=== PATIENT | female | born 1945 | race Caucasian/White ===

== ENCOUNTER 2019-10-28 01:14 | Outpatient (CLI) | payer MEDICARE, SELFPAY ==
[2019-10-28 19:35] LABS: SARS-CoV-2 RNA PCR Negative
== END 2019-10-28 01:15 | disposition home or self-care (01) ==
LOC: ANHCOVIDDT 01:14
PROVIDERS: PCP Internal Medicine; Visit Provider Internal Medicine Gastroenterology
DX: Z01.812 Encounter for preprocedural laboratory examination (principal); Z11.59 Encounter for screening for other viral diseases
CPT/HCPCS: 87635; C9803; U0003

== ENCOUNTER 2019-10-30 01:30 | Day surgery (SDC) | payer MEDICARE, SELFPAY ==
[2019-10-24 14:40] VITALS: BMI 32.0
[2019-10-30 07:40] VITALS: BP 169/74; PULSE 65; RESP 16; TEMP 36.5; O2SAT 100; BMI 31.1
[2019-10-30] MEDS: LACTATED RINGERS 1,000 ML 150 ML IV CONT (07:57)
--- NOTE | 2019-10-30 08:06 | PM.IMHP ---
H&P: HPI History of Present Illness Date/Time: 10/30/19 08:06 Chief complaint: Family Hx of CA Narrative: Reason for visit screening colonoscopy. This very pleasant lady seen at the request of the primary physician. Impression: Family history of colon cancer. The patient is here for screening colonoscopy. The patient complains of chronic constipation. This is most likely due to chronic idiopathic constipation. Recommendation: Colonoscopy. history: This very pleasant lady is a family history colorectal cancer. Injury systems remarkable for chronic constipation. She takes fiber and probiotic. She continues to have difficulty with defecation at times. He medication, melena acholic stools are denied. Physical examination: General: very pleasant patient in no acute distress. HEENT: Head was normocephalic sclerae is clear mouth without masses neck was supple. Heart: Rate rhythm regular without S3 or S4. Lungs: CTA. Abdomen: Soft with no guarding or rigidity. Bowel sounds were active. Neurologic: Cranial nerves 2 through 12 intact. No focal defects. No clonus. Musculoskeletal system: Revealed no joint tenderness or swelling no muscle atrophy. Extremities: Reveal no significant edema. Skin: Warm and dry with normal turgor. Mental status: intact. Patient is alert and oriented. Review of Systems Review of Systems: All systems reviewed & are unremarkable except as noted in HPI and below PMFSH Social History Social History (Reviewed 09/16/19 @ 08:15 by Bridget Gil, [facility] [address]) Smoking status: Never smoker Second hand tobacco smoke exposure: No Alcohol intake: current Meds Home Medications and Allergies Home Medications Medication Instructions Recorded Confirmed Type Saccharomyces boulardii 250 mg 250 mg PO DAILY 01/30/19 10/24/19 History capsule aspirin 81 mg chewable tablet 81 mg PO DAILY 01/30/19 10/24/19 History cetirizine 10 mg tablet 5 mg PO DAILY PRN 01/30/19 10/24/19 History cholecalciferol (vitamin D3) 25 1,000 unit PO DAILY 01/30/19 10/24/19 History mcg (1,000 unit) capsule multivitamin 1 tablet PO DAILY 01/30/19 10/24/19 History omega 2-zdg-vpf-fish oil 100 1 cap PO DAILY 01/30/19 10/24/19 History mg-160 mg-1,000 mg capsule vit C 250 mg-E 200 unit-zinc 40 1 tablet PO DAILY 01/30/19 10/24/19 History mg-copper 1 xf-tqhqaq-ynoscy capsule losartan 50 mg tablet 50 mg PO DAILY #90 tablet 09/16/19 10/24/19 Rx simvastatin 40 mg tablet 40 mg PO DAILY #90 tablet 09/16/19 10/24/19 Rx tramadol 50 mg tablet 50 mg PO .COMPLEX PRN #90 tablet 10/14/19 10/24/19 Rx ascorbic acid (vitamin C) [Vitamin 500 mg PO DAILY 10/24/19 10/24/19 History C] psyllium husk [Metamucil] 1 tbsp PO DAILY 10/24/19 10/24/19 History Allergies Allergy/AdvReac Type Severity Reaction Status Date / Time niacin Allergy Intermediate Itching Verified 10/30/19 07:34 clindamycin Allergy Unknown Itching Verified 10/30/19 07:34 Penicillins Allergy Unknown Nausea and Verified 10/30/19 07:34 Vomiting Vital Signs Vital Signs - 24 hr 10/30/19 07:40 Temperature 36.5 C Pulse Rate 65 Respiratory Rate 16 Blood Pressure 169/74 H Pulse Oximetry 100
--- NOTE | 2019-10-30 08:23 | WPDANESEPPF ---
Anes - Initial Pre Proc Eval Procedure: Operation Date: 10/30/19 08:30 Proposed Procedures p Screening Colonoscopy - Jose Dorado DO Date/Time: 10/30/19 08:23 Surgeon: Jose Dorado DO Pre Op Diagnosis: Family Hx of CA Patient Data Age: 74 Gender: F Height: 5 ft 6 in Weight: 87.7 kg Last Vital Signs Temp 97.7 F 10/30/19 07:40 Pulse 65 10/30/19 07:40 Resp 16 10/30/19 07:40 BP 169/74 H 10/30/19 07:40 Pulse Ox 100 10/30/19 07:40 Allergies Allergy/AdvReac Type Severity Reaction Status Date / Time niacin Allergy Intermediate Itching Verified 10/30/19 07:34 clindamycin Allergy Unknown Itching Verified 10/30/19 07:34 Penicillins Allergy Unknown Nausea and Verified 10/30/19 07:34 Vomiting Home Medications Medication Instructions Recorded Confirmed Type Saccharomyces boulardii 250 mg 250 mg PO DAILY 01/30/19 10/24/19 History capsule aspirin 81 mg chewable tablet 81 mg PO DAILY 01/30/19 10/24/19 History cetirizine 10 mg tablet 5 mg PO DAILY PRN 01/30/19 10/24/19 History cholecalciferol (vitamin D3) 25 1,000 unit PO DAILY 01/30/19 10/24/19 History mcg (1,000 unit) capsule multivitamin 1 tablet PO DAILY 01/30/19 10/24/19 History omega 7-gxz-wbu-fish oil 100 1 cap PO DAILY 01/30/19 10/24/19 History mg-160 mg-1,000 mg capsule vit C 250 mg-E 200 unit-zinc 40 1 tablet PO DAILY 01/30/19 10/24/19 History mg-copper 1 io-icvvbw-sejuxv capsule losartan 50 mg tablet 50 mg PO DAILY #90 tablet 09/16/19 10/24/19 Rx simvastatin 40 mg tablet 40 mg PO DAILY #90 tablet 09/16/19 10/24/19 Rx tramadol 50 mg tablet 50 mg PO .COMPLEX PRN #90 tablet 10/14/19 10/24/19 Rx ascorbic acid (vitamin C) [Vitamin 500 mg PO DAILY 10/24/19 10/24/19 History C] psyllium husk [Metamucil] 1 tbsp PO DAILY 10/24/19 10/24/19 History Patient hx anesthesia problems: none Family hx anesthesia problems: none PMFSH Social History Social History Smoking status: Never smoker Second hand tobacco smoke exposure: No Alcohol intake: current Anes - Eval Final PreProcedure Day of Procedure 10/30/19 08:23 Patient weight: obese Heart: regular rate and rhythm Lungs: clear to auscultation Airway: Mallampati scale class II Neurological: alert and oriented Last oral intake: >/= 8 hours ASA classification: III Emergent: no Anesthetic plan: proceed Anesthesia type and monitoring: general GIVS and standard monitoring Informed Consent: The patient's anesthetic plan and its attendant risks and benefits were discussed with the patient/family/POA. Questions were solicited and answers provided to the satisfaction of the patient/family/POA.
[2019-10-30 09:10] VITALS: BP 97/55; PULSE 65; RESP 19; O2SAT 95
[2019-10-30 09:20] VITALS: BP 109/49; PULSE 62; RESP 20; O2SAT 94
[2019-10-30 09:30] VITALS: BP 131/72; PULSE 63; RESP 17; O2SAT 96
== END 2019-10-30 09:50 | disposition home or self-care (01) ==
PROVIDERS: PCP Internal Medicine; Visit Provider Internal Medicine Gastroenterology
PROC: 0DJD8ZZ Inspection of Lower Intestinal Tract, Via Natural or Artificial Opening Endoscopic (ICD-10-PCS; CPT 45378; principal; 2019-10-30 08:30)
DX: Z12.11 Encounter for screening for malignant neoplasm of colon (principal); K57.30 Diverticulosis of large intestine without perforation or abscess without bleeding; K64.8 Other hemorrhoids; K59.09 Other constipation; E66.9 Obesity, unspecified; Z68.31 Body mass index [BMI] 31.0-31.9, adult; Z80.0 Family history of malignant neoplasm of digestive organs; Z79.82 Long term (current) use of aspirin
CPT/HCPCS: G0105; J2001; J2704; J7120

== ENCOUNTER → 2020-01-14 10:19 | Outpatient (CLI) | payer MEDICARE, SELFPAY ==
--- NOTE | ~2020-01-14 | MM_ITS ---
EXAMINATION: MM screening efren BI w nilsa HISTORY: Screening mammogram TECHNIQUE: Craniocaudal and mediolateral oblique 3-D tomosynthesis images were obtained and synthetic 2-D images were generated. CAD analysis was submitted and interpreted. COMPARISON: 10/18/2018 bilateral diagnostic digital mammogram 10/08/2018, 09/17/2017, 08/03/2016 bilateral digital screening mammogram examinations BREAST PARENCHYMAL COMPOSITION: There are scattered areas of fibroglandular density. FINDINGS: Scattered bilateral benign benign calcifications. There is no evidence of suspicious mass, calcification, or architectural distortion to suggest malignancy in either breast. There has been no suspicious interval change. IMPRESSION: 1. No mammographic evidence of malignancy. 2. Recommend routine screening mammography in one year. BI-RADS Category 2: Benign finding(s). Reviewed, dictated and finalized at location A.
--- NOTE | ~2020-01-14 | DEXA_ITS ---
Bone Density Report Name: Clare Regalado Age: 74 Sex: Female Ethnicity: White Date of : 1945 Indication: osteopenia; parental hip fracture; height loss; postmenopausal Referring Provider: RICARDO DAIGLE Study: Bone densitometry was performed. Exam Date: January 14, 2020 Accession number: [id number] There is hypertrophic degenerative change of the lumbar spine, which results in higher than expected spine bone mineral density measurements. These spine BMD and T score and Z score measurements are not reflective of the patient's true general bone mineral density. Bone Density: Region BMD T-score Z-score Classification AP Spine (L1-L4) 1.268 2.0 4.3 Normal Femoral Neck (Left) 0.669 -1.6 0.4 Osteopenia Total Hip (Left) 0.747 -1.6 0.1 Osteopenia Femoral Neck (Right) 0.642 -1.9 0.2 Osteopenia Total Hip (Right) 0.747 -1.6 0.1 Osteopenia Total Hip Mean 0.747 -1.6 0.1 Osteopenia World Health Organization criteria for BMD impression classify patients as: Normal (T-score at or above -1.0), Osteopenia (T-score between -1.0 and -2.5), or Osteoporosis (T-score at or below -2.5). 10-year Fracture Risk(1): Major Osteoporotic Fracture 19% Hip Fracture 8.7% Reported Risk Factors: [place] (), Neck BMD=0.642, BMI=32.8, parental fracture (1) FRAX(R) Version 3.08. Fracture probability calculated for an untreated patient. Fracture probability may be lower if the patient has received treatment. Previous Exams: Region Exam Age BMD T-score BMD Change BMD Change Date g/cm2 vs Baseline vs Previous AP Spine(L1-L4) 01/14/2020 74 1.268 2.0 0.012 0.097 07/13/2011 66 1.171 1.1 -0.085 0.029* 05/28/2009 64 1.143 0.9 -0.114 0.007 05/27/2008 63 1.136 0.8 -0.121 0.001 08/21/2006 61 1.135 0.8 -0.122 -0.038 12/22/2004 59 1.172 1.1 -0.084 -0.084 11/14/2002 57 1.256 1.9 Total Hip(Left) 01/14/2020 74 0.747 -1.6 -0.064 -0.058* 10/01/2017 72 0.805 -1.1 -0.006 0.010 09/13/2015 70 0.794 -1.2 -0.016 0.042* 09/02/2013 68 0.752 -1.6 -0.058 -0.015 07/13/2011 66 0.767 -1.4 -0.044 -0.009 05/28/2009 64 0.776 -1.4 -0.035 0.026 05/27/2008 63 0.749 -1.6 -0.062 0.019 08/21/2006 61 0.731 -1.7 -0.080 -0.079 12/22/2004 59 0.810 -1.1 -0.001 -0.001 11/14/2002 57 0.811 -1.1 Total Hip(Right) 01/14/2020 74 0.747 -1.6 -0.052 -0
== END ==
PROVIDERS: PCP Internal Medicine; Visit Provider Obstetrics & Gynecology
DX: Z12.31 Encounter for screening mammogram for malignant neoplasm of breast (principal); Z78.0 Asymptomatic menopausal state; M85.89 Other specified disorders of bone density and structure, multiple sites
CPT/HCPCS: 77063; 77067; 77080

== ENCOUNTER 2020-07-03 10:02 | Emergency (ER) | payer MEDICARE, SELFPAY ==
[2020-07-03 10:08] VITALS: BP 155/72; PULSE 87; RESP 16; TEMP 36.3; O2SAT 96
--- NOTE | 2020-07-03 10:21 | ED.GENADULT ---
HPI - General Adult General Chief complaint: Recheck/Abnormal Lab/Rx Stated complaint: ARTHRITIS PAIN Time Seen by Provider: 07/03/20 10:22 Source: patient Mode of arrival: ambulatory Limitations: no limitations History of Present Illness HPI narrative: 75-year-old female patient presents to the [facility] with complaints of arthritis pain. Patient states she tried calling her doctor multiple times last week to get a refill of her tramadol which she normally takes for her arthritis pain. Patient states through the my chart it says that a prescription was sent to her pharmacy however when she checked on her pharmacy this morning the prescription still had not been sent. Patient states she has not been able to relieve the pain with Tylenol and has been affecting her sleep for the last couple of days. This provider did check with the pharmacy as well and there is no prescription from her doctor at this time. Related Data Home Medications Medication Instructions Recorded Confirmed Saccharomyces boulardii 250 mg 250 mg PO DAILY 01/30/19 07/03/20 capsule aspirin 81 mg chewable tablet 81 mg PO DAILY 01/30/19 07/03/20 cetirizine 10 mg tablet 5 mg PO DAILY PRN 01/30/19 07/03/20 cholecalciferol (vitamin D3) 25 1,000 unit PO DAILY 01/30/19 07/03/20 mcg (1,000 unit) capsule multivitamin 1 tablet PO DAILY 01/30/19 07/03/20 omega 6-faw-kgb-fish oil 100 1 cap PO DAILY 01/30/19 07/03/20 mg-160 mg-1,000 mg capsule vit C 250 mg-vit E 90 mg-zinc 40 1 tablet PO DAILY 01/30/19 07/03/20 mg-copper 1 dd-mlzsjk-pbiejj capsule ascorbic acid (vitamin C) [Vitamin 500 mg PO DAILY 10/24/19 07/03/20 C] Allergies Allergy/AdvReac Type Severity Reaction Status Date / Time niacin Allergy Intermediate Itching Verified 03/10/20 09:33 clindamycin Allergy Unknown Itching Verified 03/10/20 09:33 Penicillins Allergy Unknown Nausea and Verified 03/10/20 09:33 Vomiting Review of Systems Review of Systems: Narrative: CONSTITUTIONAL: Denies fever, chills, or sweats. EYES: Denies visual changes, redness, or discharge. ENT: Denies rhinorrhea, congestion, sore throat, or otalgia. CARDIOVASCULAR: Denies chest pain, palpitations, or edema. RESPIRATORY: Denies cough or dyspnea. GASTROINTESTINAL: Denies abdominal pain, nausea, vomiting, or diarrhea. GENITOURINARY: Denies dysuria or hematuria. SKIN: Denies rash or itching. MUSCULOSKELETAL: Denies back pain, positive joint pain, and myalgia. NEUROLOGIC: Denies headache, numbness, or weakness. PSYCHIATRIC: Denies anxiety or depression. [facility] Past Medical History Medical History (Updated 07/03/20 @ 10:47 by NIKOLAI Arreola) Arthritis High cholesterol HTN (hypertension) Surgical History Surgical History H/O breast biopsy History of bilateral tubal ligation History of dilation and curettage Family History Family History Mother Family history of eczema Family history of osteoporosis Family history of diabetes mellitus in first degree relative Father Carcinoma of colon Patient's father is Family history of glaucoma Sibling Carcinoma of colon Family history of diabetes mellitus in first degree relative Patient's brother is Family history of malignant neoplasm of breast in first degree relative Family history of dementia Other Family history of malignant neoplasm of breast Family history of malignant neoplasm of male breast Social History Social History Smoking status: Never smoker Second hand tobacco smoke exposure: No Alcohol intake: current Comments At the time of my signature I agree with nursing past medical history, surgical, social, and family history. There is no relevant family history pertinent to the presenting complaint. Exam Narrative: Exam Narrative: GENERAL: Well-
== END 2020-07-03 11:04 | disposition home or self-care (01) ==
PROVIDERS: Emergency Provider Nurse Practitioner Family; PCP Internal Medicine
DX: M19.90 Unspecified osteoarthritis, unspecified site (principal); Z76.0 Encounter for issue of repeat prescription; E78.00 Pure hypercholesterolemia, unspecified; I10 Essential (primary) hypertension
CPT/HCPCS: 99213; G0463

== ENCOUNTER → 2021-01-17 10:37 | Outpatient (CLI) | payer MEDICARE, SELFPAY ==
--- NOTE | ~2021-01-17 | MM_ITS ---
EXAMINATION: MM screening efren BI w nilsa HISTORY: Screening mammogram TECHNIQUE: Craniocaudal and mediolateral oblique 3-D tomosynthesis images were obtained and synthetic 2-D images were generated. CAD analysis was submitted and interpreted. COMPARISON: 01/14/2020 bilateral digital screening mammogram 10/18/2018 bilateral diagnostic mammogram 10/08/2018, 09/17/2017, 08/03/2016 bilateral digital screening mammogram examinations BREAST PARENCHYMAL COMPOSITION: There are scattered areas of fibroglandular density. FINDINGS: Occasional bilateral benign calcifications are again noted. There is no evidence of suspici ous mass, calcification, or architectural distortion to suggest malignancy in either breast. There person s been no suspicious interval change. IMPRESSION: 1. No mammographic evidence of malignancy. 2. Recommend routine screening mammography in one year. BI-RADS Category 2: Benign finding(s). Reviewed, dictated and finalized at location A.
== END ==
PROVIDERS: PCP Internal Medicine; Visit Provider Obstetrics & Gynecology
DX: Z12.31 Encounter for screening mammogram for malignant neoplasm of breast (principal)
CPT/HCPCS: 77063; 77067

== ENCOUNTER → 2022-01-19 10:07 | Outpatient (CLI) | payer MEDICARE, SELFPAY ==
--- NOTE | ~2022-01-19 | MM_ITS ---
EXAMINATION: MM screening efren BI w nilsa HISTORY: Screening mammogram, family history of breast cancer in her sister. TECHNIQUE: Craniocaudal and mediolateral oblique 3-D tomosynthesis images were obtained and synthetic 2-D images were generated. CAD analysis was submitted and interpreted. COMPARISON: 01/17/2021, 01/14/2020, 10/18/2018, 10/08/2018 BREAST PARENCHYMAL COMPOSITION: There are scattered areas of fibroglandular density. FINDINGS: Scattered benign-appearing calcifications are present. No suspicious mass, calcification, o r architectural distortion are identified in either breast to suggest malignancy. There has been no s uspicious interval change. IMPRESSION: 1. No mammographic evidence of malignancy. 2. Recommend routine screening mammography in one year. BI-RADS Category 2: Benign finding(s). Reviewed, dictated and finalized at location A.
== END ==
PROVIDERS: PCP Internal Medicine; Visit Provider Obstetrics & Gynecology
DX: Z12.31 Encounter for screening mammogram for malignant neoplasm of breast (principal)
CPT/HCPCS: 77063; 77067

== ENCOUNTER → 2022-08-02 09:27 | Outpatient (CLI) | payer MEDICARE, SELFPAY ==
--- NOTE | ~2022-08-02 | XR_ITS ---
AP and lateral views of the right hip Clinical history: Pain Findings: No acute fracture or dislocation is seen. Osseous alignment is anatomic. Bilateral hip and SI joint spaces are preserved. Soft tissues are unremarkable. Impression: No significant abnormality is seen. Reviewed, dictated and finalized at location . Impression: No significant abnormality is seen.
== END ==
PROVIDERS: PCP Family Medicine; Visit Provider Nurse Practitioner Family
DX: M25.551 Pain in right hip (principal)
CPT/HCPCS: 73502

== ENCOUNTER 2022-10-08 09:57 | Emergency (ER) | payer MEDICARE, SELFPAY ==
--- NOTE | ~2022-10-08 | XR_ITS ---
XR knee LT 3V DATE: 10/08/2022 10:20 INDICATION: Left lateral knee pain. No injury. TECHNIQUE: 3 views COMPARISON: None FINDINGS: Small suprapatellar knee joint effusion is suggested. No fracture or dislocation, periosteal reaction or bone destruction, radiopaque interarticular loose body or chondrocalcinosis is noted. Knee joint spaces are relatively preserved. IMPRESSION: Small suprapatellar knee joint effusion is suspected Reviewed, dictated and finalized at location A.
[2022-10-08 10:07] VITALS: BP 104/75; PULSE 78; RESP 16; TEMP 36.6; O2SAT 96
--- NOTE | 2022-10-08 10:12 | ED.EXTPRO ---
HPI - Extremity Problem General Chief complaint: Extremity Problem,Nontraumatic Stated complaint: L KNEE PAIN Time Seen by Provider: 10/08/22 09:58 Source: patient and family ( ) Mode of arrival: ambulatory Limitations: no limitations History of Present Illness HPI Narrative: 77-year-old female presents to [facility] with complaints of pain to the lateral aspect of her left knee intermittently for the past 6-8 weeks. Patient reports that her knee pain started when she was walking through a department store And her left knee gave out. patient reports that she takes tramadol daily for chronic arthritis. Patient saw her primary care provider on September 11 for left knee pain and was instructed to continue medications and physical therapy at that time. Patient reports that she is in physical therapy for hip pain but they have been working on her left knee as well. Patient denies swelling, bruising, erythema, numbness or tingling. Patient reports that she currently has no pain but reports that she had pain earlier this morning MD Complaint: extremity pain Onset (ago): month(s) (2) Pain Consistency: intermittent Location: left Exacerbating factors: range of motion and walking Associated symptoms: denies other symptoms Related Data Home Medications Medication Instructions Recorded Confirmed Saccharomyces boulardii 250 mg 250 mg PO DAILY 01/30/19 10/08/22 capsule (Daily Probiotic (S. boulardii)) aspirin 81 mg chewable tablet 81 mg PO DAILY 01/30/19 10/08/22 (Ama Chewable Low Dose Aspirin) cetirizine 10 mg tablet (Zyrtec) 5 mg PO DAILY PRN allergies 01/30/19 10/08/22 cholecalciferol (vitamin D3) 25 1,000 unit PO DAILY 01/30/19 10/08/22 mcg (1,000 unit) capsule multivitamin 1 tablet PO DAILY 01/30/19 10/08/22 omega 2-egg-vsq-fish oil 100 1 cap PO DAILY 01/30/19 10/08/22 mg-160 mg-1,000 mg capsule (Fish Oil) ascorbic acid (vitamin C) 500 mg 500 mg PO DAILY 10/24/19 10/08/22 tablet (Vitamin C) vit C 250 mg-vit E 90 mg-zinc 40 1 tablet PO BID 03/17/21 10/08/22 mg-copper 1 mu-iebref-oslloz capsule (PreserVision AREDS-2) Allergies Allergy/AdvReac Type Severity Reaction Status Date / Time niacin Allergy Intermediate Itching Verified 10/08/22 10:42 clindamycin Allergy Unknown Itching Verified 10/08/22 10:42 Penicillins Allergy Unknown Nausea and Verified 10/08/22 10:42 Vomiting Review of Systems Constitutional: Constitutional: Denies chills, Denies fatigue, Denies fever(s) and Denies weakness ENT: Denies dizziness Cardiovascular: Cardiovascular: Denies chest pain Respiratory: Respiratory: Denies cough, Denies dyspnea and Denies wheezing Gastrointestinal: Gastrointestinal: Denies diarrhea, Denies nausea and Denies vomiting Musculoskeletal: Musculoskeletal: Denies back pain, Denies myalgias, Reports arthralgias, Denies joint swelling and Denies muscle cramps Comments: pain to lateral aspect of left knee Integumentary/Breasts: Skin/Breast: Denies rash Neurologic: Denies syncope, Denies headache(s), Denies focal weakness and Denies numbness Allergic/Immunologic: Allergic/Immunologic: Denies throat swelling, Denies tongue swelling and Denies wheezing PMFSH Past Medical History Medical History Arthritis COVID-19 Depression FHx: colon cancer High cholesterol HTN (hypertension) Obstructive sleep apnea Presence of intraocular lens Serum potassium elevated Surgical History Surgical History H/O breast biopsy History of bilateral tubal ligation History of dilation and curettage Family History Family History Mother Family history of eczema Family history of osteoporosis Family history of diabetes mellitus in first degree relative Father Carcinoma of colon Patient's father is Family history of glau
[2022-10-08 10:42] VITALS: BP 104/75; PULSE 78; RESP 16; TEMP 36.6; O2SAT 96
== END 2022-10-08 10:49 | disposition home or self-care (01) ==
PROVIDERS: Emergency Provider Nurse Practitioner Family; PCP Family Medicine
DX: G89.29 Other chronic pain (principal); M25.562 Pain in left knee; M19.90 Unspecified osteoarthritis, unspecified site; E78.00 Pure hypercholesterolemia, unspecified; I10 Essential (primary) hypertension; Z96.1 Presence of intraocular lens; Z86.16 Personal history of COVID-19; Z79.82 Long term (current) use of aspirin
CPT/HCPCS: 73562; 99213; G0463

== ENCOUNTER 2023-07-09 10:20 | Outpatient (CLI) | payer MEDICARE, SELFPAY ==
--- NOTE | ~2023-07-09 | MM_ITS ---
EXAMINATION: MM screening efren BI w nilsa HISTORY: Screening TECHNIQUE: Craniocaudal and mediolateral oblique 3-D tomosynthesis images were obtained and synthetic 2-D images were generated. CAD analysis was submitted and interpreted. COMPARISON: Comparison to multiple prior studies sequentially, with oldest reviewed study dated 09/17. BREAST PARENCHYMAL COMPOSITION: Not dense: There are scattered areas of fibroglandular density. FINDINGS: There is no evidence of suspicious mass, calcification, or architectural distortion to sugg est malignancy in either breast. There has been no suspicious interval change. IMPRESSION: 1. No mammographic evidence of malignancy. 2. Recommend routine screening mammography in one year. BI-RADS Category 1: Negative Reviewed, dictated and finalized at location B.
== END 2023-07-09 10:21 ==
LOC: MICIMG 10:21
PROVIDERS: PCP Obstetrics & Gynecology; Visit Provider Family Medicine
DX: Z12.31 Encounter for screening mammogram for malignant neoplasm of breast (principal)
CPT/HCPCS: 77063; 77067

== ENCOUNTER 2023-08-09 13:00 | Outpatient (CLI) | payer MEDICARE, SELFPAY ==
--- NOTE | ~2023-08-09 | CT_ITS ---
EXAMINATION: CTA chest PE protocol DATE: 08/09/2023 14:06 INDICATION: Shortness of breath TECHNIQUE: Computed tomography (CT) pulmonary angiogram of the chest was performed with 100 mL Omnipa que-350 intravenous contrast. Additional 3D reconstructions utilizing coronal maximum intensity proje ction (MIP) were performed. Automated exposure control and iterative reconstruction technique were em ployed. The dose-length product was 517.35 mGy-cm. COMPARISON: None FINDINGS: No pulmonary embolism. 7-8 mm nodule at the superior segment of the left upper lobe along the major f issure. There is mild compressive atelectasis in the medial aspect of the bilateral lower lobes along the margins of a large sliding-type hiatal hernia which contains the majority of the stomach. No pne umonia, pulmonary edema or pleural effusion. Heart size is normal. Small amount of atherosclerotic co ronary artery calcific location. No pericardial effusion. No pathologically enlarged abdominal or pel charo lymphadenopathy. Thoracic aorta is normal in caliber with no dissection. There are couple 1 cm lo w-attenuation hepatic cysts. 1.5 x 1.4 cm nodule with calcification along the capsule at the anterome dial left hepatic lobe. 2.5 x 2.2 cm calcification with additional small peripheral calcific location along the capsule at the posterior inferior right hepatic lobe. 25 degrees thoracic levoscoliosis. C hronic appearing mild anterior wedging of a few mid thoracic vertebral bodies. Moderate to severe low er thoracic and upper lumbar spondylosis. IMPRESSION: 1. No pulmonary embolism. 2. Sub-8 mm left lower lobe nodule. Recommend 6-12 month follow-up low-dose noncontrast chest CT. 3. Moderate to large sliding-type hiatal hernia. 4. A couple indeterminate nodules with calcification along the liver capsule the larger measuring 2.5 cm. Recommend further evaluation with pre and postcontrast MRI. Reviewed, dictated and finalized at location A. IMPRESSION: 1. No pulmonary embolism. 2. Sub-8 mm left lower lobe nodule. Recommend 6-12 month follow-up low-dose non contrast chest CT. 3. Moderate to large sliding-type hiatal hernia. 4. A couple indeterminate nodules with calcification along the liver capsule th e larger measuring 2.5 cm. Recommend further evaluation with pre and postcontra st MRI.
--- NOTE | ~2023-08-09 | US_ITS ---
EXAMINATION: US venous doppler [facility] DATE: 08/09/2023 13:49 INDICATION: Left lower limb swelling TECHNIQUE: Grayscale ultrasound images without and with compression and Doppler ultrasound images of the left lower extremity veins were obtained. COMPARISON: None. FINDINGS: The visualized portions of left common femoral vein, profunda (deep) femoral vein, femoral vein, popl iteal vein, peroneal veins, posterior tibial veins, gastrocnemius vein and greater saphenous vein out flow are patent. IMPRESSION: 1. No deep venous thrombosis in the left lower limb. Reviewed, dictated and finalized at location A.
== END 2023-08-09 13:01 | disposition home or self-care (01) ==
PROVIDERS: PCP Nurse Practitioner Family; Visit Provider Nurse Practitioner Family
DX: M79.89 Other specified soft tissue disorders (principal); R91.1 Solitary pulmonary nodule; K44.9 Diaphragmatic hernia without obstruction or gangrene; R93.2 Abnormal findings on diagnostic imaging of liver and biliary tract
CPT/HCPCS: 71275; 93971; Q9967

== ENCOUNTER 2023-09-25 10:26 | Outpatient (CLI) | payer MEDICARE, SELFPAY ==
--- NOTE | ~2023-09-25 | MR_ITS ---
EXAMINATION: MR abdomen wo/w con DATE: 09/25/2023 11:33 INDICATION: Abnormal findings on diagnostic imaging with indeterminate hepatic lesions on recent prio r CT. TECHNIQUE: Magnetic resonance imaging (MRI) of the abdomen was performed without and with 19 mL Multi cynthia intravenous contrast. Sequences included coronal T2-weighted SS-FSE, coronal and axial FS 2D-F IESTA, axial STIR FSE, axial T2-weighted SS-FSE, axial T2-weighted FS SS-FSE, axial diffusion-weighte d SE, axial dual-echo T1-weighted FSPGR, and axial and coronal T1-weighted LAVA. Postcontrast axial T 1-weighted LAVA images were obtained in a time course. Postcontrast coronal T1-weighted LAVA images w ere obtained. COMPARISON: CT dated 08/09/2023 FINDINGS: Heart size is normal. No pericardial or pleural effusion. Moderate to large sliding-type hiatal herni a. Multiple T2 hyperintense nonenhancing cysts scattered throughout the liver the largest at the caud al margin of the right hepatic lobe measuring 2.3 cm and second largest measuring 1 cm of the anteroi nferior margin of the lateral segment of the left hepatic lobe which correspond to the 2 lesions with central calcification seen on prior CT. No enhancing hepatic lesions identified. Gallbladder, spleen , pancreas, right kidney and bilateral adrenal glands are normal. No cholelithiasis/choledocholithias is. No intra or extra hepatic biliary ductal dilation. 7 mm nonenhancing T2 hyperintense cyst at the lower pole the left kidney with couple distal T2 hyperintense nonenhancing parapelvic cysts at the le ft renal hilum the larger at the lower pole measuring 1.8 cm. Visualized portion of the bowels includ ing the appendix are normal. No pathologically enlarged abdominal or upper pelvic lymphadenopathy. S- shaped scoliosis of the lumbar and lower thoracic spine with moderate to severe spondylosis. IMPRESSION: 1. Multiple T2 hyperintense nonenhancing cysts in the liver and left kidney which include the 2 hepat ic lesions with peripheral calcification seen on the prior CT. 2. Moderate to large sliding-type hiatal hernia. Reviewed, dictated and finalized at location B. IMPRESSION: 1. Multiple T2 hyperintense nonenhancing cysts in the liver and left kidney whi ch include the 2 hepatic lesions with peripheral calcification seen on the prio r CT. 2. Moderate to large sliding-type hiatal hernia.
== END 2023-09-25 10:27 | disposition home or self-care (01) ==
PROVIDERS: PCP Nurse Practitioner Family; Visit Provider Nurse Practitioner Family
DX: K44.9 Diaphragmatic hernia without obstruction or gangrene (principal); K76.89 Other specified diseases of liver; N28.1 Cyst of kidney, acquired; R93.5 Abnormal findings on diagnostic imaging of other abdominal regions, including retroperitoneum
CPT/HCPCS: 74183; A9577

== ENCOUNTER 2024-01-05 12:26 | Outpatient (CLI) | payer MEDICARE, SELFPAY ==
--- NOTE | ~2024-01-05 | MR_ITS ---
EXAMINATION: MR lumbar spine wo con DATE: 01/05/2024 13:01 INDICATION: Polyarthritis, unspecified. Back pain. TECHNIQUE: Magnetic resonance imaging (MRI) of the lumbar spine was performed without intravenous con trast. Sequences included sagittal T2-weighted FSE, sagittal T2-weighted FS FSE, sagittal T1-weighted FSE, and axial T2-weighted FSE. COMPARISON: None FINDINGS: There is 21 degrees levoscoliosis of lumbar spine. There is 3 mm retrolisthesis of T12 on L 1 and L1 on L2 and 5 mm anterolisthesis of L4 on L5 and L5 on S1. Vertebral body heights are normal. There is severely decreased disc height at T12-L1 and L1-L2, mildly decreased disc height at L2-L3, a nd severely decreased disc height from L3-L4 through L5-S1. The distal spinal cord signal intensity i s normal. The conus medullaris is at L2. The following disc levels are specifically discussed: L1-L2: The disc is bulging. There is severe bilateral facet joint osteoarthritis. There is mild right and moderate left neural foraminal stenosis. There is mild central canal stenosis. L2-L3: The disc is bulging. There is severe bilateral facet joint osteoarthritis. There is mild bilat eral neural foraminal stenosis. There is mild central canal stenosis. L3-L4: The disc is bulging. There is ankylosis of the facet joints with moderate hypertrophy. There i s mild bilateral neural foraminal stenosis. There is no central canal stenosis. L4-L5: The disc is bulging and has an annular fissure. There is severe bilateral facet joint osteoart hritis. There is moderate bilateral neural foraminal stenosis. There is severe central canal stenosis . L5-S1: The disc is bulging and has an annular fissure. There is severe bilateral facet joint osteoart hritis. There is mild right and moderate left neural foraminal stenosis. There is mild central canal stenosis. IMPRESSION: 1. Severe lumbar spondylosis. 2. Lumbar levoscoliosis. Reviewed, dictated and finalized at location A.
== END 2024-01-05 12:27 | disposition home or self-care (01) ==
PROVIDERS: PCP Nurse Practitioner Family; Visit Provider Nurse Practitioner Family
DX: M13.0 Polyarthritis, unspecified (principal); M54.9 Dorsalgia, unspecified; G89.29 Other chronic pain; M47.26 Other spondylosis with radiculopathy, lumbar region; M41.9 Scoliosis, unspecified
CPT/HCPCS: 72148

== ENCOUNTER 2024-03-17 13:38 | Outpatient (CLI) | payer MEDICARE, SELFPAY ==
--- NOTE | ~2024-03-17 | XR_ITS ---
VIEWS LUMBAR SPINE Ordering provider: Noni Galeas MD History: . NO INJURY LBP . Comparison: None. FINDINGS: VERTEBRAL BODIES:Levoscoliosis with degenerative changes of the spine. No visible fracture or sublux ation. DISK SPACES: Narrowing of all the disc spaces. Multilevel facet joint disease. SOFT TISSUES: Atherosclerotic changes are present. IMPRESSION: No acute osseous abnormality lumbar spine. Multilevel degenerative disc disease. Reviewed, dictated and finalized at location A. E WORKER HELPER
== END 2024-03-17 13:39 | disposition home or self-care (01) ==
PROVIDERS: PCP Nurse Practitioner Family; Visit Provider Neurological Surgery
DX: M51.369 Other intervertebral disc degeneration, lumbar region without mention of lumbar back pain or lower extremity pain (principal); M47.816 Spondylosis without myelopathy or radiculopathy, lumbar region
CPT/HCPCS: 72110

== ENCOUNTER 2024-03-22 19:17 | Observation (INO) | payer MEDICARE, SELFPAY ==
--- NOTE | ~2024-03-22 | XR_ITS ---
EXAMINATION: XR chest 1V portable DATE: 03/22/2024 22:21 INDICATION: Fever TECHNIQUE: frontal view of the chest was obtained. COMPARISON: Chest CT dated 08/09/2023 FINDINGS: Small amount of gas within a large retrocardiac hiatal hernia. Lungs are clear with no focal airspace opacities, pulmonary edema, pleural effusion or pneumothorax. Heart size is normal. IMPRESSION: 1. No acute cardiopulmonary disease. 2. Large hiatal hernia. Reviewed, dictated and finalized at location A. AIN STITCHER
--- NOTE | ~2024-03-22 | XR_ITS ---
EXAMINATION: XR abdomen obstructive series DATE: 03/26/2024 13:22 INDICATION: Diarrhea TECHNIQUE: Frontal supine and upright views of the abdomen were obtained. COMPARISON: CT dated 03/22/2024 FINDINGS: Moderate-sized hiatal hernia. Moderate amount of gas scattered throughout nondilated large and small bowel. No dilated loops of bowel to suggest obstruction. No free intraperitoneal gas. Mild lumbar lev oscoliosis with severe spondylosis. Visualized lower lungs are clear. Heart size is within normal harry its for AP technique. IMPRESSION: 1. No free intraperitoneal gas or dilated gas-filled loops of bowel to suggest obstruction. Reviewed, dictated and finalized at location A. R HELPER
--- NOTE | ~2024-03-22 | CT_ITS ---
CT abdomen pelvis w con Ordering provider: Dwight Vega PA-C History: 79 years Female with . L flank tenderness, lumbar stenosis pain . Comparison: None. Technique: CT abdomen and pelvis with IV and without oral contrast. Automated exposure control and it erative reconstruction technique were employed. The dose-length product was 690.67 mGy-cm. 100 mL Omn ipaque 350 was given IV. Findings: VISUALIZED LOWER CHEST: Normal. UPPER ABDOMINAL ORGANS: Liver: Multiple tiny cysts in the largest in the right lobe near to the inferior tip measuring 2.1 cm . Gallbladder: Normal. Spleen: Normal. Stomach/duodenum: Sliding hiatus hernia. Pancreas: Normal. Adrenals: Normal. Kidneys: Tiny cyst in the left kidney lower pole. PELVIC ORGANS: The bladder is normal. Normal. BOWEL AND MESENTERY: Colon: No evidence of diverticulitis. Fecal material is seen in the colon suggestive of constipation. 0 Normal appendix. Small Bowel: Normal. No obstruction. Peritoneum/mesentery: No free air or free fluid. No mesenteric lymphadenopathy. RETROPERITONEUM: Mild atheromatous disease of the abdominal aorta. No retroperitoneal lymphadenopat hy. MUSCULOSKELETAL: Superficial soft tissues: The superficial soft tissues are normal. Bones: Age appropriate degenerative changes of the spine. Minimal anterolisthesis at the level of L4- L5. IMPRESSION: 1. Sliding hiatus hernia. 2. Constipation. 3. No evidence of appendicitis, diverticulitis or intestinal obstruction. 4. Multiple tiny hepatic cysts. Reviewed, dictated and finalized at location A. E ARMORER OPERATOR
[2024-03-22 18:41] VITALS: BP 133/58; PULSE 70; RESP 20; TEMP 36.6; O2SAT 97
--- NOTE | 2024-03-22 19:26 | ED.BACK ---
HPI - Back Pain/Injury General Chief Complaint: Back Pain/Injury Stated Complaint: Back pain Source: patient Mode of arrival: ambulatory Limitations: no limitations History of Present Illness HPI Narrative: This is a 79-year-old female who presents to the ED via EMS for chief complaint of acute on chronic lower back pain patient reports that the pain is primarily on the left side. She is following with Neurosurgery, Dr. Galeas and has been undergoing outpatient evaluation for this. States that she is taking [place] for pain. Denies bowel or bladder dysfunction, numbness, weakness. Does feel that she may have had a fever this week and has had some general body aches as well with flu-like symptoms. Denies chest pain, shortness of breath. Related Data Home Medications ?Medication ?Instructions ?Recorded ?Confirmed ?Last Taken ?Type Saccharomyces boulardii 250 mg 250 mg PO DAILY 01/30/19 02/14/24 10/29/19 History capsule (Daily Probiotic (S. boulardii)) aspirin 81 mg chewable tablet 81 mg PO DAILY 01/30/19 02/14/24 10/29/19 History (Ama Chewable Low Dose Aspirin) cetirizine 10 mg tablet (Zyrtec) 5 mg PO DAILY PRN allergies 01/30/19 02/14/24 10/29/19 History cholecalciferol (vitamin D3) 25 1,000 unit PO DAILY 01/30/19 02/14/24 10/29/19 History mcg (1,000 unit) capsule multivitamin 1 tablet PO DAILY 01/30/19 02/14/24 10/29/19 History omega 9-gsp-exz-fish oil 100 1 cap PO DAILY 01/30/19 02/14/24 10/29/19 History mg-160 mg-1,000 mg capsule (Fish Oil) ascorbic acid (vitamin C) 500 mg 500 mg PO DAILY 10/24/19 02/14/24 10/29/19 History tablet (Vitamin C) vit C 250 mg-vit E 90 mg-zinc 40 1 tablet PO BID 03/17/21 02/14/24 Unknown History mg-copper 1 pp-elusch-pigebo capsule (PreserVision AREDS-2) diphenhydramine HCl 25 mg capsule 25 mg PO QHS PRN 09/17/23 02/14/24 Unknown History (Benadryl) Allergies Allergy/AdvReac Type Severity Reaction Status Date / Time niacin Allergy Intermediate Itching Verified 03/22/24 18:46 clindamycin Allergy Unknown Itching Verified 03/22/24 18:46 Penicillins Allergy Unknown Nausea and Verified 03/22/24 18:46 Vomiting Review of Systems Review of Systems: All systems as dictated in [facility] Past Medical History Medical History FHx: colon cancer Serum potassium elevated COVID-19 Depression Obstructive sleep apnea Presence of intraocular lens High cholesterol HTN (hypertension) Arthritis Surgical History Surgical History History of dilation and curettage History of bilateral tubal ligation H/O breast biopsy Family History Family History Mother Family history of eczema Family history of osteoporosis Family history of diabetes mellitus in first degree relative Father Carcinoma of colon Patient's father is Family history of glaucoma Sibling Carcinoma of colon Family history of diabetes mellitus in first degree relative Patient's brother is Family history of malignant neoplasm of breast in first degree relative Family history of dementia Other Family history of malignant neoplasm of breast Family history of malignant neoplasm of male breast Social History Social History (Updated 03/13/24 @ 09:49 by Monique Serna CMA) Smoking status: Never smoker Second hand tobacco smoke exposure: Yes Alcohol intake: former Alcohol use details: Social - wine Substance use: never Substance use type: does not use Do You Feel Safe in your Home?: Yes Lack of Transportation: No Lack of Food: Never True Current Housing: I Have Housing Concerned About Future Housing: No Difficulty Paying Gas/Electric Bills: No Difficulty Paying for Meds: No Currently Unemployed: Decline to Answer Education: Associate Degree Difficulty w/ Childcare or Family Care: No Living arrangements: with family 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 Gender identity (if verbalized by the patient): Female Sexual Orientation (if Verbalized by the Patient): Straight or Heterosexual Spiritual care concerns: No Agree to blood products: Yes Exam Narrative: GENERAL: Well-appearing, well-nourished, and in no acute distress. HEAD: Normocephalic, atraumatic. EYES: PERRLA and EOMI. ENT: Nares clear, no rhinorrhea or epistaxis. Mucous membranes moist. Oropharynx without tonsillar hypertrophy exudate or other lesions. NECK: Supple. No adenopathy or masses. CHEST: No respiratory distress. Clear to auscultation. No wheezes rales or rhonchi HEART: Regular rate and rhythm. No murmur heard. Normal peripheral pulses. ABDOMEN: Left flank tenderness present. Negative on the right. Soft, abdomen is otherwise nontender, nondistended, normal active bowel sounds. MSK: Normal range of motion. No edema. SKIN: Warm, dry, no rash. NEURO: Alert and oriented x4. No focal deficits. 5/5 strength and sensation to the upper and lower extremities. No Saddle anesthesia PSYCH: Normal mood and affect. Course Vital Signs Vital signs: Vital Signs Temperature 97.9 F 03/22/24 18:41 Pulse Rate 70 03/22/24 18:41 Respiratory Rate 20 03/22/24 18:41 Blood Pressure 133/58 L 03/22/24 18:41 Pulse Oximetry 97 03/22/24 18:41 Oxygen Delivery Room Air 03/22/24 18:41 Temperature 100.8 F H 03/22/24 23:07 Pulse Rate 62 03/23/24 00:34 Respiratory Rate 14 03/23/24 00:34 Blood Pressure 109/55 L 03/23/24 00:34 Pulse Oximetry 98 03/23/24 00:34 Oxygen Delivery Room Air 03/22/24 18:41 MDM - Back Pain/Injury MDM Narrative Medical decision making narrative: This is a 79-year-old female who presents to the ED for chief complaint of left lower back pain. Vitals are normal. Exam shows focal left flank tenderness. Otherwise is well-appearing Showing normal white count on the CBC. CMP with mildly elevated BUN and creatinine at 26 and 1.10 respectively. Urinalysis is concerning for potential infection with 1+ leuk esterase, 11-20 whites. Viral swabs were done and are negative. Chest x-ray was obtained does not show any focal pneumonia. CT abdomen pelvis with IV contrast: IMPRESSION: 1. Sliding hiatus hernia. 2. Constipation. 3. No evidence of appendicitis, diverticulitis or intestinal obstruction. 4. Multiple tiny hepatic cysts. Patient has developed a fever while in the ED and pressures have remained on the soft side. Feel that there is potentially a UTI causing this fever and low blood pressure. She has retained a map greater than 65. 3 L of saline bolus were given here in the ED and patient was started on meropenem. Discussed the case with hospitalist who will admit the patient to the IMU. Patient is understanding and agreeable with this plan. Lab Data 03/22/24 19:41 03/22/24 19:41 Labs: Lab Results 03/22/24 03/22/24 Range/Units 19:41 20:02 WBC 9.8 (4.5-10.0) K/mm3 RBC 3.25 L (4.2-5.4) M/mm3 Hgb 10.4 L (12.0-15.0) g/dL Hct 31.7 L (37.0-47.0) % MCV 97.5 (80-100) fl MCH 32.0 (26-34) pg MCHC 32.8 (32-36) g/dl RDW 12.4 (11.5-14.5) % Plt Count 137 L (150-375) k/mm3 MPV 12.0 H (7.4-10.4) fl Immature Gran % (Auto) 0.5 (0-0.5) % Neut % (Auto) 80.7 H (45.5-73.1) % Lymph % (Auto) 7.8 L (18.3-44.2) % [place] % (Auto) 10.4 H (2.6-8.5) % Eos % (Auto) 0.1 (0-4.4) % Baso % (Auto) 0.5 (0.2-1.2) % Lymph # (Auto) 0.76 L (0.9-3.2) K/mm3 [place] # (Auto) 1.0 H (0.1-0.6) K/mm3 Eos # (Auto) 0.0 (0-0.3) K/mm3 Baso # (Auto) 0.1 (0.0-0.1) K/mm3 Abs Immat Gran (auto) 0.05 H (0.00-0.031) K/mm3 Absolute Neuts (auto) 7.9 H (1.3-6.7) K/mm3 Absolute Nucleated RBC 0.000 (0.0-0.012) K/mm3 Nucleated RBC % 0.0 (0.0-0.2) % Sodium 136 L (137-145) mmol/L Potassium 3.6 (3.4-5.0) mmol/L Chloride 107 (98-107) mmol/L Carbon Dioxide 26 (22-30) mmol/L Anion Gap 3 L (4-12) mmol/L BUN 26 H (7-17) mg/dL Creatinine 1.10 H (0.7-1.0) mg/dL Estim Creat Clear Calc 41 ml/min Estimated GFR 48 L (59 - ) Glucose 87 (65-110) mg/dL Calcium 9.0 (8.4-10.2) mg/dL Total Bilirubin 0.8 (0.2-1.3) mg/dL AST 39 H (14-36) U/L ALT 32 (6-35) U/L Alkaline Phosphatase 113 (38-126) U/L Total Protein 7.0 (6.3-8.2) g/dL Albumin 3.5 (3.5-5.1) g/dL Lipase 46 (23-300) U/L Urine Color Yellow (Yellow) Urine Appearance Clear (Clear) Urine pH 6.5 (5.0-9.0) Ur Specific [place] 1.025 (1.001-1.035) Urine Protein 1+ H (Negative) mg/dL Urine Glucose (UA) Negative (Negative) mg/dL Urine Ketones 1+ H (Negative) mg/dL Ur Blood (Man) Negative (Negative) Urine Nitrate Negative (Negative) Urine Bilirubin Negative (Negative) Urine Urobilinogen 1.0 (<2.0) mg/dL Leukocyte Esterase Rfl 1+ H (Negative) EVANGELISTA/UL Urine RBC 0-2 (0-2) /hpf Urine WBC 11-20 H (0-3) /hpf Ur Squamous Epith Cells Occasional (Few) /hpf Urine Bacteria None seen /hpf Urine Casts 0-2 Influenza A (RT-PCR) Negative (Negative) Influenza B (RT-PCR) Negative (Negative) RSV (RT-PCR) Negative (Negative) SARS-CoV-2 RNA (RT-PCR) Negative (Negative) Discharge Plan Discharge Clinical Impression: Acute UTI Patient Disposition: Still a Patient Condition: Stable
[2024-03-22] MEDS: ONDANSETRON INJ 4 MG/2 ML VIAL IV PUSH (19:43)
[2024-03-22] MEDS: HYDROmorphone HCL INJ (*CRX) 1 MG/ML SYR 0.5 MG IV PUSH (19:43)
[2024-03-22] MEDS: SODIUM CHLORIDE 0.9% IV 1,000 ML 999 ML IV CONT ×2 (19:43→23:45)
[2024-03-22 19:53] LABS: Basophils Absolute Auto 0.1 K/mm3 (0.0-0.1); Basophils Percent Auto 0.5 % (0.2-1.2); Eosinophils Percent Auto 0.1 % (0-4.4); Hematocrit 31.7 % (37.0-47.0); Hemoglobin 10.4 g/dL (12.0-15.0); Immature Granulocyte Absolute 0.05 K/mm3 (0.00-0.031); Immature Granulocyte Percent A 0.5 % (0-0.5); Lymphocytes Absolute Auto 0.76 K/mm3 (0.9-3.2); Lymphocytes Percent Auto 7.8 % (18.3-44.2); Mean Corpuscular HGB Conc 32.8 g/dl (32-36); Mean Corpuscular Volume 97.5 fl (80-100); Monocytes Percent Auto 10.4 % (2.6-8.5); Neutrophils Absolute Auto 7.9 K/mm3 (1.3-6.7); Neutrophils Percent Auto 80.7 % (45.5-73.1); Platelet Count Result 137 k/mm3 (150-375); Red Blood Count 3.25 M/mm3 (4.2-5.4); Red Cell Distribution Width 12.4 % (11.5-14.5); White Blood Count 9.8 K/mm3 (4.5-10.0)
[2024-03-22] MEDS: ACETAMINOPHEN 500 MG TABLET 1000 MG PO (19:58)
[2024-03-22 20:00] VITALS: BP 128/52; PULSE 68; RESP 14; TEMP 39; O2SAT 95
[2024-03-22 20:02] LABS: Alanine Aminotransferase 32 U/L (6-35); Albumin Level 3.5 g/dL (3.5-5.1); Alkaline Phosphatase 113 U/L (38-126); Anion Gap 3 mmol/L (4-12); Aspartate Amino Transferase 39 U/L (14-36); Bilirubin,Total 0.8 mg/dL (0.2-1.3); Blood Urea Nitrogen 26 mg/dL (7-17); Carbon Dioxide 26 mmol/L (22-30); Chloride 107 mmol/L (98-107); Estimated CRCL calculation 41 ml/min; Estimated Glomerular Filt Rate 48; Glucose 87 mg/dL (65-110); Lipase 46 U/L (23-300); Potassium 3.6 mmol/L (3.4-5.0); Sodium 136 mmol/L (137-145)
[2024-03-22 20:13] LABS: Add Urine Microscopic? YES; Appearance Urine Clear (Clear); Bacteria Urine None Seen /hpf; Bilirubin Urine Negative (Negative); Blood Urine Negative (Negative); Color Urine Yellow (Yellow); Glucose Urine UA Negative (Negative); Ketones Urine 1+ mg/dL (Negative); Leukocyte Esterase Ur 1+ LEU/UL (Negative); Nitrate Urine Negative (Negative); Non Pathogenic Casts 0-2; Protein Urine 1+ mg/dL (Negative); RBC Urine 0-2 /hpf (0-2); Specific Grav Ur 1.025 (1.001-1.035); Squamous Epithelial Cell Urine Occasional /hpf (Few); pH Urine 6.5 (5.0-9.0)
[2024-03-22 22:08] LABS: Influenza A QL RT-PCR Negative (Negative); Influenza B QL RT-PCR Negative (Negative); RSV RNA, RT-PCR Negative (Negative); SARS-CoV-2 RNA PCR Negative (Negative)
[2024-03-22 23:07] VITALS: BP 106/58; PULSE 62; RESP 14; TEMP 38.2; O2SAT 96
[2024-03-22] MEDS: MEROPENEM 1 GM/NS 100 ML 1 GM/100 ML BAG IVPB (23:45)
[2024-03-23] VITALS (14 sets, daily range): BP systolic 109–138; BP diastolic 39–68; PULSE 58–79; RESP 14–22; TEMP 36.3–38.1; O2SAT 91–98; BMI 32.0
--- NOTE | 2024-03-23 00:22 | PM.IMHP ---
H&P: HPI History of Present Illness Date/Time: 03/23/24 00:22 Chief Complaint: back pain Narrative: This is a 79-year-old female with past medical history significant for lumbar stenosis, neurogenic claudication, chronic back pain. Patient presents to the emergency room due to left flank pain, chills, fevers, poor per orally intake. In emergency room patient had episode of hypotension, received 3 L of IV fluids. Preliminary workup was significant for urinalysis with WBCs present, patient tested negative for influenza type A influenza type B COVID and RSV. Patient has been admitted for further evaluation management and treatment. CT abdomen pelvis w con Ordering provider: Dwight Vega PA-C History: 79 years Female with . L flank tenderness, lumbar stenosis pain . Comparison: None. Technique: CT abdomen and pelvis with IV and without oral contrast. Automated exposure control and iterative reconstruction technique were employed. The dose-length product was 690.67 mGy-cm. 100 mL Omnipaque 350 was given IV. Findings: VISUALIZED LOWER CHEST: Normal. UPPER ABDOMINAL ORGANS: Liver: Multiple tiny cysts in the largest in the right lobe near to the inferior tip measuring 2.1 cm. Gallbladder: Normal. Spleen: Normal. Stomach/duodenum: Sliding hiatus hernia. Pancreas: Normal. Adrenals: Normal. Kidneys: Tiny cyst in the left kidney lower pole. PELVIC ORGANS: The bladder is normal. Normal. BOWEL AND MESENTERY: Colon: No evidence of diverticulitis. Fecal material is seen in the colon suggestive of constipation.0 Normal appendix. Small Bowel: Normal. No obstruction. Peritoneum/mesentery: No free air or free fluid. No mesenteric lymphadenopathy. RETROPERITONEUM: Mild atheromatous disease of the abdominal aorta. No retroperitoneal lymphadenopathy. MUSCULOSKELETAL: Superficial soft tissues: The superficial soft tissues are normal. Bones: Age appropriate degenerative changes of the spine. Minimal anterolisthesis at the level of L4-L5. IMPRESSION: 1. Sliding hiatus hernia. 2. Constipation. 3. No evidence of appendicitis, diverticulitis or intestinal obstruction. 4. Multiple tiny hepatic cysts. [facility] Past Medical History Medical History FHx: colon cancer Serum potassium elevated COVID-19 Depression Obstructive sleep apnea Presence of intraocular lens High cholesterol HTN (hypertension) Arthritis Surgical History Surgical History History of dilation and curettage History of bilateral tubal ligation H/O breast biopsy Family History Family History Mother Family history of eczema Family history of osteoporosis Family history of diabetes mellitus in first degree relative Father Carcinoma of colon Patient's father is Family history of glaucoma Sibling Carcinoma of colon Family history of diabetes mellitus in first degree relative Patient's brother is Family history of malignant neoplasm of breast in first degree relative Family history of dementia Other Family history of malignant neoplasm of breast Family history of malignant neoplasm of male breast Social History Social History (Updated 03/13/24 @ 09:49 by Monique Serna [facility]) Smoking status: Never smoker Second hand tobacco smoke exposure: Yes Alcohol intake: former Alcohol use details: Social - wine Substance use: never Substance use type: does not use Do You Feel Safe in your Home?: Yes Lack of Transportation: No Lack of Food: Never True Current Housing: I Have Housing Concerned About Future Housing: No Difficulty Paying Gas/Electric Bills: No Difficulty Paying for Meds: No Currently Unemployed: Decline to Answer Education: Associate Degree Difficulty w/ Childcare or Family Care: No Living arrangements: with family 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 Gender identity (if verbalized by the patient): Female Sexual Orientation (if Verbalized by the Patient): Straight or Heterosexual Spiritual care concerns: No Agree to blood products: Yes Meds Home Medications and Allergies Home Medications ?Medication ?Instructions ?Recorded ?Confirmed ?Type Saccharomyces boulardii 250 mg 250 mg PO DAILY 01/30/19 02/14/24 History capsule (Daily Probiotic (S. boulardii)) aspirin 81 mg chewable tablet 81 mg PO DAILY 01/30/19 02/14/24 History (Ama Chewable Low Dose Aspirin) cetirizine 10 mg tablet (Zyrtec) 5 mg PO DAILY PRN allergies 01/30/19 02/14/24 History cholecalciferol (vitamin D3) 25 1,000 unit PO DAILY 01/30/19 02/14/24 History mcg (1,000 unit) capsule multivitamin 1 tablet PO DAILY 01/30/19 02/14/24 History omega 7-szu-cnm-fish oil 100 1 cap PO DAILY 01/30/19 02/14/24 History mg-160 mg-1,000 mg capsule (Fish Oil) ascorbic acid (vitamin C) 500 mg 500 mg PO DAILY 10/24/19 02/14/24 History tablet (Vitamin C) vit C 250 mg-vit E 90 mg-zinc 40 1 tablet PO BID 03/17/21 02/14/24 History mg-copper 1 ek-gvdpwy-dzzzii capsule (PreserVision AREDS-2) diphenhydramine HCl 25 mg capsule 25 mg PO QHS PRN 09/17/23 02/14/24 History (Benadryl) bupropion HCl 150 mg tablet,12 hr See Rx Instructions .Route 02/11/24 02/14/24 Rx sustained-release .COMPLEX #90 tabs hydrochlorothiazide 12.5 mg tablet See Rx Instructions .Route 02/13/24 02/14/24 Rx .COMPLEX #90 tabs budesonide-formoterol HFA 80 2 puff inhalation Q12H #10.2 grams 02/14/24 02/14/24 Rx mcg-4.5 mcg/actuation aerosol inhaler (Symbicort) simvastatin 40 mg tablet 40 mg PO DAILY #90 tabs 02/14/24 02/14/24 Rx valsartan 160 mg tablet (Diovan) 160 mg PO DAILY #90 tabs 02/14/24 02/14/24 Rx albuterol sulfate 90 mcg/actuation See Rx Instructions .Route 03/03/24 Rx aerosol inhaler .COMPLEX #9 grams meloxicam 7.5 mg tablet 7.5 mg PO DAILY #30 tabs 03/04/24 Rx hydrocodone 5 mg-acetaminophen 325 1 tablet PO Q6H PRN pain #120 tabs 03/13/24 Rx mg tablet tizanidine 4 mg tablet 4 mg PO QHS PRN muscle spasticity 03/14/24 Rx #30 tabs montelukast 10 mg tablet See Rx Instructions .Route 03/20/24 Rx .COMPLEX #30 tabs Allergies Allergy/AdvReac Type Severity Reaction Status Date / Time niacin Allergy Intermediate Itching Verified 03/22/24 18:46 clindamycin Allergy Unknown Itching Verified 03/22/24 18:46 Penicillins Allergy Unknown Nausea and Verified 03/22/24 18:46 Vomiting Vital Signs Vital Signs - 24 hr 03/22/24 18:41 03/22/24 20:00 03/22/24 23:07 Temperature 97.9 F 102.2 F H 100.8 F H Pulse Rate 70 68 62 Respiratory Rate 20 14 14 Blood Pressure 133/58 L 128/52 L 106/58 L Pulse Oximetry 97 95 96 Oxygen Delivery Room Air Exam Narrative: lying in stretcher Const: General: comfortable, no acute distress, well developed, alert, awake, ill appearing acutely and obese Nutritional Appearance: obese Orientation/consciousness: patient oriented x3 Other: ill appearing HENMT: Head: normal to inspection, normocephalic and atraumatic Ears: hearing grossly normal bilaterally Face/Nose/Sinus: normal facial exam Face and sinus: normal facial exam Eyes: General: appearance normal, both eyes and all related structures Pupils: Equal, round and reactive pupils present EOM: EOMs intact bilaterally Neck: Neck: full ROM, no lymphadenopathy and no JVD Thyroid: thyroid normal Lymphatic: no lymphadenopathy noted Resp: Effort & Inspection: normal respiratory effort and able to speak in complete sentences Auscultation: clear to auscultation bilaterally Cardio: Jugular venous distension: no JVD Rate: regular rate Rhythm: regular rhythm Heart sounds: S1 normal heart sound present and S2 normal heart sound present GI: Inspection: obesity GI Palp: Yes Soft to palpation and Yes No hepatosplenomegaly present : General: Yes CVA tenderness on the left and Yes deferred Skin: Rashes: no rashes Wounds: no wounds Neuro: General: patient oriented x3 and CN's II-XI intact bilaterally Cranial nerves: Yes CN's II-XII intact bilaterally and Yes Equal, round and reactive pupils present Cognition (Neuro): normal cognition Speech: normal speech Gait exam (Neuro): Unable to assess gait Motor exam (neuro): 5/5 motor strength present throughout Extrem: General: normal to inspection, full ROM, no joint enlargement and no pedal edema H&P: Results Labs Labs: Short CBC 03/22/24 Range/Units 19:41 WBC 9.8 (4.5-10.0) K/mm3 Hgb 10.4 L (12.0-15.0) g/dL Hct 31.7 L (37.0-47.0) % Plt Count 137 L (150-375) k/mm3 BMP 03/22/24 19:41 Sodium 136 L Potassium 3.6 Chloride 107 Carbon Dioxide 26 BUN 26 H Creatinine 1.10 H Glucose 87 Calcium 9.0 Liver Function 03/22/24 Range/Units 19:41 Total Bilirubin 0.8 (0.2-1.3) mg/dL AST 39 H (14-36) U/L ALT 32 (6-35) U/L Alkaline Phosphatase 113 (38-126) U/L Albumin 3.5 (3.5-5.1) g/dL Urine 03/22/24 Range/Units 20:02 Urine Color Yellow (Yellow) Urine Appearance Clear (Clear) Urine pH 6.5 (5.0-9.0) Ur Specific [place] 1.025 (1.001-1.035) Urine Protein 1+ H (Negative) mg/dL Urine Glucose (UA) Negative (Negative) mg/dL Assessment and Plan Assessment and plan (1) Acute UTI: Code(s): N39.0 - Urinary tract infection, site not specified Status: Acute Assessment and Plan: Patient started on Merrem Blood cultures in progress (2) Lumbar stenosis with neurogenic claudication: Code(s): M48.062 - Spinal stenosis, lumbar region with neurogenic claudication Status: Acute Assessment and Plan: Follow-up in outpatient setting (3) Chronic back pain: Code(s): M54.9 - Dorsalgia, unspecified; G89.29 - Other chronic pain Status: Acute Assessment and Plan: Tylenol as needed (4) Asthma: Code(s): J45.909 - Unspecified asthma, uncomplicated Status: Acute Assessment and Plan: Restart her home meds (5) Chronic GERD: Code(s): K21.9 - Gastro-esophageal reflux disease without esophagitis Status: Acute Assessment and Plan: PPI Hospitalist MIPS Advance Care Plan I have confirmed that the patient's Advanced Care Plan is present, code status is documented, or surrogate decision maker is listed in patient medical record.: Yes Medication Reconciliation I have utilized all available resources to obtain, update and review the patients current medications (includes all prescriptions, OTC, herbals, cannabis, and nutritional supplements).: Yes
[2024-03-23] MEDS: SODIUM CHLORIDE 0.9% IV 1,000 ML 999 ML IV CONT (00:48)
--- NOTE | 2024-03-23 01:27 | ADMGEN ---
This patient, Clare Regalado, was admitted to IMU Room 205-01. Patient/family oriented to hospital policies and general routines including ID bracelet, bed and alarms, visiting hours, pain management, procedures, bathroom and other care routines, personal items, smoking policy, room service/diet, and visiting hours. Information on how to activate the Rapid Response Team has been discussed. Patient/Family are encouraged to report perceived risks to care and to ask questions if they do not understand what they are told or what they should do.
[2024-03-23] MEDS: HYDROmorphone HCL INJ (*CRX) 1 MG/ML SYR 0.5 MG IV PUSH (01:42)
--- NOTE | 2024-03-23 10:47 | P.PNIM_ITS ---
Progress Note: A&P Assessment and Plan (1) Acute UTI: Code(s): N39.0 - Urinary tract infection, site not specified Status: Acute (2) Lumbar stenosis with neurogenic claudication: Code(s): M48.062 - Spinal stenosis, lumbar region with neurogenic claudication Status: Acute (3) Chronic back pain: Code(s): M54.9 - Dorsalgia, unspecified; G89.29 - Other chronic pain Status: Acute (4) Asthma: Code(s): J45.909 - Unspecified asthma, uncomplicated Status: Acute (5) Chronic GERD: Code(s): K21.9 - Gastro-esophageal reflux disease without esophagitis Status: Acute Plan this is a 79-year-old female who presents to the ER with acute on chronic lower back pain on left side with associated fever that started this week. Associated generalized body aches and flu-like symptoms. She follows with Neurosurgery for her back issue and is on chronic pain medications as well. On ED evaluation she was mildly febrile otherwise vitals were stable. Laboratory evaluation revealed normal WBC count at 9.8 mild anemia 10.4. Creatinine 1.1 electrolytes were unremarkable. LFTs were normal. Urinalysis showed evidence of UTI. Influenza RSV COVID swab was negative. Chest x-ray without any acute cardiopulmonary pathology. CT abdomen pelvis with IV contrast showed sliding hiatal hernia. Constipation. No evidence of appendicitis diverticulitis or intestinal obstruction. Multiple tiny hepatic cyst. Patient received IV fluids as well as IV antibiotics in the ER . She received IV ceftriaxone as well as meropenem in the ER. No prior urine cultures available. Will continue ceftriaxone for now until urine culture finalized.. Follow urine culture. Blood culture also pending. Lumbar stenosis with neurogenic claudication follows with Neurosurgery.Received epidural injections in the past currently on chronic opiate therapy Asthma not in exacerbation Chronic GERD PPI ROYER Depression Hypertension blood pressure borderline will hold blood pressure medications hydrochlorothiazide and valsartan Hyperlipidemia DVT prophylaxisLovenox Do not resuscitate Subjective Date/time seen: 03/23/24 10:47 Interval history: complains of low back pain. Which has been ongoing chronic issue but recently exacerbated. Also reports fever and urinary symptoms. Review of Systems Review of Systems: All systems reviewed & are unremarkable except as noted in HPI and below Exam Narrative: GENERAL: Well-appearing, well-nourished, In mild distress due to pain HEAD: Normocephalic, atraumatic. EYES: PERRLA and EOMI. ENT: Nares clear, no rhinorrhea or epistaxis. Mucous membranes moist. NECK: Supple. No adenopathy or masses. CHEST: No respiratory distress. Clear to auscultation. No wheezes rales or rhonchi HEART: Regular rate and rhythm. No murmur heard. Normal peripheral pulses. ABDOMEN: Left flank tenderness present. Negative on the right. Soft, abdomen is otherwise nontender, nondistended, normal active bowel sounds. MSK: Normal range of motion. No edema. SKIN: Warm, dry, no rash. NEURO: Alert and oriented x4. No focal deficits. 5/5 strength and sensation to the upper and lower extremities. No Saddle anesthesia PSYCH: Normal mood and affect. Objective Data Vital Signs Vital Signs: Vital Signs - 24 hr 03/22/24 18:41 03/22/24 20:00 03/22/24 23:07 Temperature 97.9 F 102.2 F H 100.8 F H Pulse Rate 70 68 62 Respiratory Rate 20 14 14 Blood Pressure 133/58 L 128/52 L 106/58 L Pulse Oximetry 97 95 96 Oxygen Delivery Room Air 03/23/24 00:34 03/23/24 01:26 03/23/24 02:00 Temperature 99 F 98.3 F Pulse Rate 62 71 69 Respiratory Rate 14 18 Blood Pressure 109/55 L 122/46 L Pulse Oximetry 98 96 Oxygen Delivery 03/23/24 02:00 03/23/24 04:00 03/23/24 04:00 Temperature 98.5 F Pulse Rate 69 Respiratory Rate 16 Blood Pressure 112/40 L Pulse Oximetry 95 Oxygen Delivery Room Air Room Air 03/23/24 04:00 03/23/24 06:00 03/23/24 08:00 Temperature Pulse Rate 63 72 72 Respiratory Rate 16 Blood Pressure 113/62 Pulse Oximetry 96 Oxygen Delivery 03/23/24 08:00 03/23/24 09:06 03/23/24 10:00 Temperature 100.5 F H Pulse Rate 69 79 Respiratory Rate Blood Pressure Pulse Oximetry Oxygen Delivery Intake/Output Intake/Output: Intake & Output 03/20/24 03/21/24 03/22/24 03/23/24 23:59 23:59 23:59 23:59 Intake Total 1002 2610 Output Total 200 Balance 1002 2410 Meds/Results Medications: Active Medications Generic Name Dose Route Start Last Admin Trade Name Freq PRN Reason Stop Dose Admin Acetaminophen 650 mg 03/23/24 00:33 Acetaminophen 325 Mg Tablet PO Q4H PRN Mild Pain (1-3) or Fever Hydromorphone HCl 0.5 mg 03/23/24 00:33 03/23/24 01:42 Hydromorphone Hcl Inj (*Crx) 1 Mg/Ml Syr IV PUSH 0.5 mg Q4H PRN Administration Pain Rated 7-10 Ondansetron HCl 4 mg 03/23/24 00:33 Ondansetron Inj 4 Mg/2 Ml Vial IV PUSH Q4H PRN Nausea Radiology Results: ITS Impressions Abdomen/Pelvis CT 03/22/24 20:46 IMPRESSION: 1. Sliding hiatus hernia. 2. Constipation. 3. No evidence of appendicitis, diverticulitis or intestinal obstruction. 4. Multiple tiny hepatic cysts. Chest X-Ray 03/23/24 08:06 IMPRESSION: 1. No acute cardiopulmonary disease. 2. Large hiatal hernia. Labs Labs: Laboratory Results - last 24 hr 03/22/24 03/22/24 19:41 20:02 WBC 9.8 RBC 3.25 L Hgb 10.4 L Hct 31.7 L MCV 97.5 MCH 32.0 MCHC 32.8 RDW 12.4 Plt Count 137 L MPV 12.0 H Immature Gran % (Auto) 0.5 Neut % (Auto) 80.7 H Lymph % (Auto) 7.8 L [place] % (Auto) 10.4 H Eos % (Auto) 0.1 Baso % (Auto) 0.5 Lymph # (Auto) 0.76 L [place] # (Auto) 1.0 H Eos # (Auto) 0.0 Baso # (Auto) 0.1 Abs Immat Gran (auto) 0.05 H Absolute Neuts (auto) 7.9 H Absolute Nucleated RBC 0.000 Nucleated RBC % 0.0 Sodium 136 L Potassium 3.6 Chloride 107 Carbon Dioxide 26 Anion Gap 3 L BUN 26 H Creatinine 1.10 H Estim Creat Clear Calc 41 Estimated GFR 48 L Glucose 87 Calcium 9.0 Total Bilirubin 0.8 AST 39 H ALT 32 Alkaline Phosphatase 113 Total Protein 7.0 Albumin 3.5 Lipase 46 Urine Color Yellow Urine Appearance Clear Urine pH 6.5 Ur Specific [place] 1.025 Urine Protein 1+ H Urine Glucose (UA) Negative Urine Ketones 1+ H Ur Blood (Man) Negative Urine Nitrate Negative Urine Bilirubin Negative Urine Urobilinogen 1.0 Leukocyte Esterase Rfl 1+ H Urine RBC 0-2 Urine WBC 11-20 H Ur Squamous Epith Cells Occasional Urine Bacteria None seen Urine Casts 0-2 Influenza A (RT-PCR) Negative Influenza B (RT-PCR) Negative RSV (RT-PCR) Negative SARS-CoV-2 RNA (RT-PCR) Negative
[2024-03-23] MEDS: ONDANSETRON INJ 4 MG/2 ML VIAL IV PUSH ×2 (11:38→21:34)
[2024-03-23] MEDS: ACETAMINOPHEN 325 MG TABLET 650 MG PO ×2 (11:41→19:38)
[2024-03-23] MEDS: buPROPion HCL SR (12 HR) 150 MG TAB BY MOUTH (11:41)
[2024-03-23] MEDS: MONTELUKAST SODIUM 10 MG TABLET BY MOUTH (11:42)
[2024-03-23] MEDS: LIDOCAINE 5% PATCH 1 PATCH TRANSDERM (11:48)
--- NOTE | 2024-03-23 13:26 | PCRCNOTE ---
Patient did not bring her home cpap but does not want to use the hospital's cpap. Patient knows if she changes her mind that we would be happy to provide one for her.
[2024-03-23] MEDS: HYDROcodone/acetaminophen (*CRX) 5-325 MG TABLET 1 TAB PO ×2 (14:34→21:30)
[2024-03-23] MEDS: OPTI-GEN TAB 1 TABLET PO (16:55)
--- NOTE | 2024-03-23 20:22 | PC.NURSE ---
Report called to Nafisa BOATENG. SBAR tubed. Will be transferring patient to room 325
[2024-03-23] MEDS: cefTRIAXone 2 GM/NS 100 ML 2 GM/100 ML BAG IVPB (20:27)
[2024-03-23] MEDS: FLUTICASONE/SALMETEROL 45-21 MCG INHALER 1 PUFF 2 PUFF INHALATION (21:15)
[2024-03-24] VITALS (7 sets, daily range): BP systolic 108–130; BP diastolic 44–60; PULSE 52–84; RESP 18–20; TEMP 36.6–37.2; O2SAT 93–96
[2024-03-24] MEDS: HYDROcodone/acetaminophen (*CRX) 5-325 MG TABLET 1 TAB PO ×3 (03:17→20:41)
[2024-03-24 06:21] LABS: Basophils Percent Auto 0.5 % (0.2-1.2); Eosinophils Percent Auto 0.1 % (0-4.4); Hematocrit 29.1 % (37.0-47.0); Hemoglobin 9.5 g/dL (12.0-15.0); Immature Granulocyte Absolute 0.02 K/mm3 (0.00-0.031); Immature Granulocyte Percent A 0.3 % (0-0.5); Lymphocytes Absolute Auto 0.78 K/mm3 (0.9-3.2); Lymphocytes Percent Auto 10.3 % (18.3-44.2); Mean Corpuscular HGB Conc 32.6 g/dl (32-36); Mean Corpuscular Hemoglobin 32.5 pg (26-34); Mean Corpuscular Volume 99.7 fl (80-100); Mean Platelet Volume 12.6 fl (7.4-10.4); Monocytes Absolute Auto 0.8 K/mm3 (0.1-0.6); Neutrophils Percent Auto 78.8 % (45.5-73.1); Platelet Count Result 120 k/mm3 (150-375); Red Blood Count 2.92 M/mm3 (4.2-5.4); Red Cell Distribution Width 12.3 % (11.5-14.5); White Blood Count 7.6 K/mm3 (4.5-10.0)
[2024-03-24 06:44] LABS: Alanine Aminotransferase 29 U/L (6-35); Albumin Level 3.2 g/dL (3.5-5.1); Alkaline Phosphatase 109 U/L (38-126); Anion Gap 5 mmol/L (4-12); Aspartate Amino Transferase 38 U/L (14-36); Bilirubin,Total 0.5 mg/dL (0.2-1.3); Blood Urea Nitrogen 19 mg/dL (7-17); Calcium 8.8 mg/dL (8.4-10.2); Carbon Dioxide 22 mmol/L (22-30); Chloride 111 mmol/L (98-107); Estimated CRCL calculation 46 ml/min; Estimated Glomerular Filt Rate 54; Glucose 98 mg/dL (65-110); Magnesium 2.4 mg/dL (1.6-2.3); Potassium 3.7 mmol/L (3.4-5.0); Sodium 138 mmol/L (137-145)
[2024-03-24] MEDS: ACETAMINOPHEN 325 MG TABLET 650 MG PO ×2 (07:41→18:31)
[2024-03-24] MEDS: FLUTICASONE/SALMETEROL 45-21 MCG INHALER 1 PUFF 2 PUFF INHALATION ×3 (07:45→21:29)
[2024-03-24] MEDS: ASPIRIN 81 MG CHEWABLE TABLET PO (08:36)
[2024-03-24] MEDS: ASCORBIC ACID 500 MG TABLET PO (08:36)
[2024-03-24] MEDS: SACCHAROMYCES BOULARDII 250 MG CAPSULE PO (08:37)
[2024-03-24] MEDS: SIMVASTATIN 20 MG TABLET 40 MG PO (08:37)
[2024-03-24] MEDS: MONTELUKAST SODIUM 10 MG TABLET BY MOUTH (08:37)
[2024-03-24] MEDS: MULTIVITAMINS THERAPEUTIC TAB (*BKC) 1 TABLET PO (08:37)
[2024-03-24] MEDS: ENOXAPARIN 40 MG/0.4 ML SYRINGE SUB-Q (08:37)
[2024-03-24] MEDS: MELOXICAM 7.5 MG TABLET PO (08:37)
[2024-03-24] MEDS: buPROPion HCL SR (12 HR) 150 MG TAB BY MOUTH (08:37)
[2024-03-24] MEDS: OMEGA 3 POLYUNSAT FATTY ACIDS 1 GM CAP PO (08:37)
[2024-03-24] MEDS: OPTI-GEN TAB 1 TABLET PO ×2 (08:37→17:08)
[2024-03-24] MEDS: LIDOCAINE 5% PATCH 1 PATCH TRANSDERM (08:43)
[2024-03-24] MEDS: ALBUTEROL SULFATE (*SP) AEROSOL 1 PUFF 2 PUFF INHALATION (10:00)
[2024-03-24] MEDS: polyethylene glycoL 3350 17 GM POWD.PACK PO (10:13)
--- NOTE | 2024-03-24 13:06 | P.PNIM_ITS ---
Progress Note: A&P Assessment and Plan (1) Acute UTI: Code(s): N39.0 - Urinary tract infection, site not specified Status: Acute (2) Lumbar stenosis with neurogenic claudication: Code(s): M48.062 - Spinal stenosis, lumbar region with neurogenic claudication Status: Acute (3) Chronic back pain: Code(s): M54.9 - Dorsalgia, unspecified; G89.29 - Other chronic pain Status: Acute (4) Asthma: Code(s): J45.909 - Unspecified asthma, uncomplicated Status: Acute (5) Chronic GERD: Code(s): K21.9 - Gastro-esophageal reflux disease without esophagitis Status: Acute Plan this is a 79-year-old female who presents to the ER with acute on chronic lower back pain on left side with associated fever that started this week. Associated generalized body aches and flu-like symptoms. She follows with Neurosurgery for her back issue and is on chronic pain medications as well. On ED evaluation she was mildly febrile otherwise vitals were stable. Laboratory evaluation revealed normal WBC count at 9.8 mild anemia 10.4. Creatinine 1.1 electrolytes were unremarkable. LFTs were normal. Urinalysis showed evidence of UTI. Influenza RSV COVID swab was negative. Chest x-ray without any acute cardiopulmonary pathology. CT abdomen pelvis with IV contrast showed sliding hiatal hernia. Constipation. No evidence of appendicitis diverticulitis or intestinal obstruction. Multiple tiny hepatic cyst. Patient received IV fluids as well as IV antibiotics in the ER . She received IV ceftriaxone as well as meropenem in the ER. No prior urine cultures available. Will continue ceftriaxone for now until urine culture finalized.. Follow urine culture. Lumbar stenosis with neurogenic claudication follows with Neurosurgery.Received epidural injections in the past currently on chronic opiate therapy. Added lidocaine patch Asthma not in exacerbation restart albuterol. Already getting Advair Chronic GERD PPI ROYER Depression Hypertension blood pressure borderline will hold blood pressure medications hydrochlorothiazide and valsartan Hyperlipidemia DVT prophylaxisLovenox Do not resuscitate Disposition: PT OT to see Subjective Date/time seen: 03/24/24 13:06 Interval history: She feels much better today. Remains afebrile. Urine symptoms has resolved as well. Review of Systems Review of Systems: All systems reviewed & are unremarkable except as noted in HPI and below Exam Narrative: GENERAL: Well-appearing, well-nourished, not in acute distress HEAD: Normocephalic, atraumatic. EYES: PERRLA and EOMI. ENT: Nares clear, no rhinorrhea or epistaxis. Mucous membranes moist. NECK: Supple. No adenopathy or masses. CHEST: No respiratory distress. Wheezy HEART: Regular rate and rhythm. No murmur heard. Normal peripheral pulses. ABDOMEN: Left flank tenderness present. Negative on the right. Soft, abdomen is otherwise nontender, nondistended, normal active bowel sounds. MSK: Normal range of motion. No edema. SKIN: Warm, dry, no rash. NEURO: Alert and oriented x4. No focal deficits. 5/5 strength and sensation to the upper and lower extremities. No Saddle anesthesia PSYCH: Normal mood and affect. Objective Data Vital Signs Vital Signs: Vital Signs - 24 hr 03/23/24 15:58 03/23/24 21:15 03/23/24 21:30 Temperature 98.4 F 97.3 F L Pulse Rate 58 L 62 69 Respiratory Rate 18 22 H Blood Pressure 122/51 L 138/68 Pulse Oximetry 96 91 Oxygen Delivery 03/24/24 05:54 03/24/24 07:45 03/24/24 07:45 Temperature 98.9 F Pulse Rate 52 L 84 84 Respiratory Rate 20 18 18 Blood Pressure 108/44 L Pulse Oximetry 94 95 Oxygen Delivery Room Air 03/24/24 08:00 03/24/24 10:00 Temperature Pulse Rate 79 Respiratory Rate 18 Blood Pressure Pulse Oximetry 94 Oxygen Delivery Room Air Intake/Output Intake/Output: Intake & Output 03/21/24 03/22/24 03/23/24 03/24/24 23:59 23:59 23:59 23:59 Intake Total 1002 3090 540 Output Total 950 Balance 1002 2140 540 Meds/Results Medications: Active Medications Generic Name Dose Route Start Last Admin Trade Name Freq PRN Reason Stop Dose Admin Acetaminophen 650 mg 03/23/24 00:33 03/24/24 07:41 Acetaminophen 325 Mg Tablet PO 650 mg Q4H PRN Administration Mild Pain (1-3) or Fever Hydrocodone Bitart/Acetaminophen 1 tab 03/23/24 10:46 03/24/24 03:17 Hydrocodone/Acetaminophen (*Crx) 5-325 Mg Tablet PO 1 tab Q6H PRN Administration pain 4-6 Albuterol 2 puff 03/23/24 10:50 03/24/24 10:00 Albuterol Sulfate (*Sp) Aerosol 1 Puff INHALATION 2 puff Q4H PRN Administration SHORTNESS OF BREATH/WHEEZING Ascorbic Acid 500 mg 03/24/24 09:00 03/24/24 08:36 Ascorbic Acid 500 Mg Tablet PO 500 mg DAILY BREE Administration Aspirin 81 mg 03/24/24 09:00 03/24/24 08:36 Aspirin 81 Mg Chewable Tablet PO 81 mg DAILY BREE Administration Bupropion HCl 150 mg 03/23/24 12:00 03/24/24 08:37 Bupropion Hcl Sr (12 Hr) 150 Mg Tab BY MOUTH 150 mg DAILY BREE Administration Enoxaparin Sodium 40 mg 03/24/24 09:00 03/24/24 08:37 Enoxaparin 40 Mg/0.4 Ml Syringe SUB-Q 40 mg DAILY BREE Administration Fish Oil 1 gm 03/24/24 09:00 03/24/24 08:37 [place] 3 Polyunsat Fatty Acids 1 Gm Cap PO 1 gm DAILY BREE Administration Hydromorphone HCl 0.5 mg 03/23/24 00:33 03/23/24 01:42 Hydromorphone Hcl Inj (*Crx) 1 Mg/Ml Syr IV PUSH 0.5 mg Q4H PRN Administration Pain Rated 7-10 Ceftriaxone Sodium 2 gm in 100 mls @ 200 mls/hr 03/23/24 21:00 03/23/24 20:27 Rocephin 2 Gm/Ns 100 Ml IVPB 200 mls/hr Q24H BREE Administration Lidocaine 1 patch 03/23/24 11:05 03/24/24 08:43 Lidocaine 5% Patch TRANSDERM 1 patch DAILY BREE Administration Meloxicam 7.5 mg 03/24/24 09:00 03/24/24 08:37 Meloxicam 7.5 Mg Tablet PO 7.5 mg DAILY BREE Administration Montelukast Sodium 10 mg 03/23/24 12:00 03/24/24 08:37 Montelukast Sodium 10 Mg Tablet BY MOUTH 10 mg DAILY BREE Administration Multivitamins Therapeutic 1 tablet 03/24/24 09:00 03/24/24 08:37 Multivitamins Therapeutic Tab (*Bkc) PO 1 tablet DAILY BREE Administration Multivitamins/Minerals 1 tablet 03/23/24 17:00 03/24/24 08:37 Opti-Gen Tab PO 1 tablet BID BREE Administration Ondansetron HCl 4 mg 03/23/24 00:33 03/23/24 21:34 Ondansetron Inj 4 Mg/2 Ml Vial IV PUSH 4 mg Q4H PRN Administration Nausea Polyethylene Glycol 17 gm 03/24/24 09:00 03/24/24 10:13 Polyethylene Glycol 3350 17 Gm Powd.Pack PO 17 gm QAM BREE Administration Saccharomyces Boulardii 250 mg 03/24/24 09:00 03/24/24 08:37 Saccharomyces Boulardii 250 Mg Capsule PO 250 mg DAILY BREE Administration Fluticasone/Salmeterol 2 puff 03/23/24 20:00 03/24/24 07:45 Fluticasone/Salmeterol 45-21 Mcg Inhaler 1 Puff INHALATION 2 puff Q12HRT BREE Administration Simvastatin 40 mg 03/24/24 09:00 03/24/24 08:37 Simvastatin 20 Mg Tablet PO 40 mg DAILY BREE Administration Tizanidine HCl 4 mg 03/23/24 10:46 Tizanidine Hcl 4 Mg Tablet PO QHS PRN muscle spasticity Radiology Results: ITS Impressions Abdomen/Pelvis CT 03/22/24 20:46 IMPRESSION: 1. Sliding hiatus hernia. 2. Constipation. 3. No evidence of appendicitis, diverticulitis or intestinal obstruction. 4. Multiple tiny hepatic cysts. Chest X-Ray 03/23/24 08:06 IMPRESSION: 1. No acute cardiopulmonary disease. 2. Large hiatal hernia. Labs Labs: Laboratory Results - last 24 hr 03/24/24 06:05 WBC 7.6 RBC 2.92 L Hgb 9.5 L Hct 29.1 L MCV 99.7 MCH 32.5 MCHC 32.6 RDW 12.3 Plt Count 120 L MPV 12.6 H Immature Gran % (Auto) 0.3 Neut % (Auto) 78.8 H Lymph % (Auto) 10.3 L [place] % (Auto) 10.0 H Eos % (Auto) 0.1 Baso % (Auto) 0.5 Lymph # (Auto) 0.78 L [place] # (Auto) 0.8 H Eos # (Auto) 0.0 Baso # (Auto) 0.0 Abs Immat Gran (auto) 0.02 Absolute Neuts (auto) 6.0 Absolute Nucleated RBC 0.000 Nucleated RBC % 0.0 Sodium 138 Potassium 3.7 Chloride 111 H Carbon Dioxide 22 Anion Gap 5 BUN 19 H Creatinine 1.00 Estim Creat Clear Calc 46 Estimated GFR 54 L Glucose 98 Calcium 8.8 Magnesium 2.4 H Total Bilirubin 0.5 AST 38 H ALT 29 Alkaline Phosphatase 109 Total Protein 6.0 L Albumin 3.2 L
[2024-03-24] MEDS: cefTRIAXone 2 GM/NS 100 ML 2 GM/100 ML BAG IVPB (20:08)
[2024-03-24] MEDS: TIZANIDINE HCL 4 MG TABLET PO (20:41)
[2024-03-25] MEDS: ALBUTEROL SULFATE (*SP) AEROSOL 1 PUFF 2 PUFF INHALATION (02:26)
[2024-03-25] MEDS: HYDROcodone/acetaminophen (*CRX) 5-325 MG TABLET 1 TAB PO ×3 (03:37→19:10)
[2024-03-25 06:00] VITALS: BP 102/76; PULSE 79; RESP 20; TEMP 36.6; O2SAT 94
[2024-03-25 08:59] VITALS: PULSE 72; RESP 20; O2SAT 97
[2024-03-25] MEDS: FLUTICASONE/SALMETEROL 45-21 MCG INHALER 1 PUFF 2 PUFF INHALATION (08:59)
[2024-03-25] MEDS: SACCHAROMYCES BOULARDII 250 MG CAPSULE PO (09:25)
[2024-03-25] MEDS: OMEGA 3 POLYUNSAT FATTY ACIDS 1 GM CAP PO (09:25)
[2024-03-25] MEDS: ASPIRIN 81 MG CHEWABLE TABLET PO (09:25)
[2024-03-25] MEDS: ASCORBIC ACID 500 MG TABLET PO (09:26)
[2024-03-25] MEDS: MELOXICAM 7.5 MG TABLET PO (09:26)
[2024-03-25] MEDS: SIMVASTATIN 20 MG TABLET 40 MG PO (09:26)
[2024-03-25] MEDS: MONTELUKAST SODIUM 10 MG TABLET BY MOUTH (09:26)
[2024-03-25] MEDS: buPROPion HCL SR (12 HR) 150 MG TAB BY MOUTH (09:26)
[2024-03-25] MEDS: OPTI-GEN TAB 1 TABLET PO ×2 (09:26→16:45)
[2024-03-25] MEDS: MULTIVITAMINS THERAPEUTIC TAB (*BKC) 1 TABLET PO (09:26)
[2024-03-25] MEDS: ENOXAPARIN 40 MG/0.4 ML SYRINGE SUB-Q (09:26)
[2024-03-25] MEDS: LIDOCAINE 5% PATCH 1 PATCH TRANSDERM (09:27)
--- NOTE | 2024-03-25 11:40 | P.PNIM_ITS ---
Progress Note: A&P Assessment and Plan (1) Acute UTI: Code(s): N39.0 - Urinary tract infection, site not specified Status: Acute (2) Lumbar stenosis with neurogenic claudication: Code(s): M48.062 - Spinal stenosis, lumbar region with neurogenic claudication Status: Acute (3) Chronic back pain: Code(s): M54.9 - Dorsalgia, unspecified; G89.29 - Other chronic pain Status: Acute (4) Asthma: Code(s): J45.909 - Unspecified asthma, uncomplicated Status: Acute (5) Chronic GERD: Code(s): K21.9 - Gastro-esophageal reflux disease without esophagitis Status: Acute Plan this is a 79-year-old female who presents to the ER with acute on chronic lower back pain on left side with associated fever that started this week. Associated generalized body aches and flu-like symptoms. She follows with Neurosurgery for her back issue and is on chronic pain medications as well. On ED evaluation she was mildly febrile otherwise vitals were stable. Laboratory evaluation revealed normal WBC count at 9.8 mild anemia 10.4. Creatinine 1.1 electrolytes were unremarkable. LFTs were normal. Urinalysis showed evidence of UTI. Influenza RSV COVID swab was negative. Chest x-ray without any acute cardiopulmonary pathology. CT abdomen pelvis with IV contrast showed sliding hiatal hernia. Constipation. No evidence of appendicitis diverticulitis or intestinal obstruction. Multiple tiny hepatic cyst. Patient received IV fluids as well as IV antibiotics in the ER . She received IV ceftriaxone as well as meropenem in the ER. No prior urine cultures available. Will continue ceftriaxone for now until urine culture finalized.. Follow urine culture which came back with mixed genital bessy. Change to oral antibiotics Lumbar stenosis with neurogenic claudication follows with Neurosurgery.Received epidural injections in the past currently on chronic opiate therapy. Added lidocaine patch Asthma not in exacerbation restart albuterol. Already getting Advair Diarrhea will check for C diff. if negative and diarrhea slows down may DC home Chronic GERD PPI ROYER Depression Hypertension blood pressure borderline will hold blood pressure medications hydrochlorothiazide and valsartan Hyperlipidemia DVT prophylaxisLovenox Do not resuscitate Disposition: PT OT to see Subjective Date/time seen: 03/25/24 11:40 Interval history: Overnight she had couple of episodes of diarrhea. Was loose. Denies any abdominal pain. No nausea vomiting. Had some also flared up which improved with albuterol inhaler. No other complaints and wants to go home. Review of Systems Review of Systems: All systems reviewed & are unremarkable except as noted in HPI and below Exam Narrative: GENERAL: Well-appearing, well-nourished, not in acute distress HEAD: Normocephalic, atraumatic. EYES: PERRLA and EOMI. ENT: Nares clear, no rhinorrhea or epistaxis. Mucous membranes moist. NECK: Supple. No adenopathy or masses. CHEST: No respiratory distress. Wheezy HEART: Regular rate and rhythm. No murmur heard. Normal peripheral pulses. ABDOMEN: Soft, abdomen is otherwise nontender, nondistended, normal active bowel sounds. MSK: Normal range of motion. No edema. SKIN: Warm, dry, no rash. NEURO: Alert and oriented x4. No focal deficits. 5/5 strength and sensation to the upper and lower extremities. No Saddle anesthesia PSYCH: Normal mood and affect. Objective Data Vital Signs Vital Signs: Vital Signs - 24 hr 03/24/24 14:00 03/24/24 15:30 03/24/24 20:00 Temperature 97.9 F Pulse Rate 56 L Respiratory Rate 20 Blood Pressure 130/60 Pulse Oximetry 94 Oxygen Delivery Room Air Room Air 03/24/24 21:32 03/24/24 21:36 03/25/24 06:00 Temperature 98.7 F 97.8 F Pulse Rate 66 79 Respiratory Rate 20 20 Blood Pressure 113/49 L 102/76 Pulse Oximetry 93 96 94 Oxygen Delivery Room Air 03/25/24 08:00 03/25/24 08:59 03/25/24 08:59 Temperature Pulse Rate 72 Respiratory Rate 20 Blood Pressure Pulse Oximetry 97 Oxygen Delivery Room Air Room Air Intake/Output Intake/Output: Intake & Output 03/22/24 03/23/24 03/24/24 03/25/24 23:59 23:59 23:59 23:59 Intake Total 1002 3190 1590 440 Output Total 950 Balance 1002 2240 1590 440 Meds/Results Medications: Active Medications Generic Name Dose Route Start Last Admin Trade Name Freq PRN Reason Stop Dose Admin Acetaminophen 650 mg 03/23/24 00:33 03/24/24 18:31 Acetaminophen 325 Mg Tablet PO 650 mg Q4H PRN Administration Mild Pain (1-3) or Fever Hydrocodone Bitart/Acetaminophen 1 tab 03/23/24 10:46 03/25/24 09:33 Hydrocodone/Acetaminophen (*Crx) 5-325 Mg Tablet PO 1 tab Q6H PRN Administration pain 4-6 Albuterol 2 puff 03/23/24 10:50 03/25/24 02:26 Albuterol Sulfate (*Sp) Aerosol 1 Puff INHALATION 2 puff Q4H PRN Administration SHORTNESS OF BREATH/WHEEZING Ascorbic Acid 500 mg 03/24/24 09:00 03/25/24 09:26 Ascorbic Acid 500 Mg Tablet PO 500 mg DAILY BREE Administration Aspirin 81 mg 03/24/24 09:00 03/25/24 09:25 Aspirin 81 Mg Chewable Tablet PO 81 mg DAILY BREE Administration Bupropion HCl 150 mg 03/23/24 12:00 03/25/24 09:26 Bupropion Hcl Sr (12 Hr) 150 Mg Tab BY MOUTH 150 mg DAILY BREE Administration Enoxaparin Sodium 40 mg 03/24/24 09:00 03/25/24 09:26 Enoxaparin 40 Mg/0.4 Ml Syringe SUB-Q 40 mg DAILY BREE Administration Fish Oil 1 gm 03/24/24 09:00 03/25/24 09:25 [place] 3 Polyunsat Fatty Acids 1 Gm Cap PO 1 gm DAILY BREE Administration Hydromorphone HCl 0.5 mg 03/23/24 00:33 03/23/24 01:42 Hydromorphone Hcl Inj (*Crx) 1 Mg/Ml Syr IV PUSH 0.5 mg Q4H PRN Administration Pain Rated 7-10 Ceftriaxone Sodium 2 gm in 100 mls @ 200 mls/hr 03/23/24 21:00 03/24/24 20:38 Rocephin 2 Gm/Ns 100 Ml IVPB Infused Q24H BREE Infusion Lidocaine 1 patch 03/23/24 11:05 03/25/24 09:27 Lidocaine 5% Patch TRANSDERM 1 patch DAILY BREE Administration Meloxicam 7.5 mg 03/24/24 09:00 03/25/24 09:26 Meloxicam 7.5 Mg Tablet PO 7.5 mg DAILY BREE Administration Montelukast Sodium 10 mg 03/23/24 12:00 03/25/24 09:26 Montelukast Sodium 10 Mg Tablet BY MOUTH 10 mg DAILY BREE Administration Multivitamins Therapeutic 1 tablet 03/24/24 09:00 03/25/24 09:26 Multivitamins Therapeutic Tab (*Bkc) PO 1 tablet DAILY BREE Administration Multivitamins/Minerals 1 tablet 03/23/24 17:00 03/25/24 09:26 Opti-Gen Tab PO 1 tablet BID BREE Administration Ondansetron HCl 4 mg 03/23/24 00:33 03/23/24 21:34 Ondansetron Inj 4 Mg/2 Ml Vial IV PUSH 4 mg Q4H PRN Administration Nausea Polyethylene Glycol 17 gm 03/24/24 09:00 03/25/24 09:28 Polyethylene Glycol 3350 17 Gm Powd.Pack PO Not Given QAM [facility] Saccharomyces Boulardii 250 mg 03/24/24 09:00 03/25/24 09:25 Saccharomyces Boulardii 250 Mg Capsule PO 250 mg DAILY [facility] Administration Fluticasone/Salmeterol 2 puff 03/23/24 20:00 03/25/24 08:59 Fluticasone/Salmeterol 45-21 Mcg Inhaler 1 Puff INHALATION 2 puff Q12HRT [facility] Administration Simvastatin 40 mg 03/24/24 09:00 03/25/24 09:26 Simvastatin 20 Mg Tablet PO 40 mg DAILY [facility] Administration Tizanidine HCl 4 mg 03/23/24 10:46 03/24/24 20:41 Tizanidine Hcl 4 Mg Tablet PO 4 mg QHS PRN Administration muscle spasticity Radiology Results: ITS Impressions Abdomen/Pelvis CT 03/22/24 20:46 IMPRESSION: 1. Sliding hiatus hernia. 2. Constipation. 3. No evidence of appendicitis, diverticulitis or intestinal obstruction. 4. Multiple tiny hepatic cysts. Chest X-Ray 03/23/24 08:06 IMPRESSION: 1. No acute cardiopulmonary disease. 2. Large hiatal hernia.
[2024-03-25 14:00] VITALS: BP 146/90; PULSE 77; RESP 22; TEMP 36.8; O2SAT 96
[2024-03-25] MEDS: ACETAMINOPHEN 325 MG TABLET 650 MG PO (16:44)
--- NOTE | 2024-03-25 17:12 | P.PNIM_ITS ---
Progress Note: A&P Assessment and Plan (1) Acute UTI: Code(s): N39.0 - Urinary tract infection, site not specified Status: Acute (2) Lumbar stenosis with neurogenic claudication: Code(s): M48.062 - Spinal stenosis, lumbar region with neurogenic claudication Status: Acute (3) Chronic back pain: Code(s): M54.9 - Dorsalgia, unspecified; G89.29 - Other chronic pain Status: Acute (4) Asthma: Code(s): J45.909 - Unspecified asthma, uncomplicated Status: Acute (5) Chronic GERD: Code(s): K21.9 - Gastro-esophageal reflux disease without esophagitis Status: Acute Plan this is a 79-year-old female who presents to the ER with acute on chronic lower back pain on left side with associated fever that started this week. Associated generalized body aches and flu-like symptoms. She follows with Neurosurgery for her back issue and is on chronic pain medications as well. On ED evaluation she was mildly febrile otherwise vitals were stable. Laboratory evaluation revealed normal WBC count at 9.8 mild anemia 10.4. Creatinine 1.1 electrolytes were unremarkable. LFTs were normal. Urinalysis showed evidence of UTI. Influenza RSV COVID swab was negative. Chest x-ray without any acute cardiopulmonary pathology. CT abdomen pelvis with IV contrast showed sliding hiatal hernia. Constipation. No evidence of appendicitis diverticulitis or intestinal obstruction. Multiple tiny hepatic cyst. Patient received IV fluids as well as IV antibiotics in the ER . She received IV ceftriaxone as well as meropenem in the ER. No prior urine cultures available. Will continue ceftriaxone for now until urine culture finalized.. Follow urine culture which came back with mixed genital bessy. Change to oral antibiotics Lumbar stenosis with neurogenic claudication follows with Neurosurgery.Received epidural injections in the past currently on chronic opiate therapy. Added lidocaine patch Asthma not in exacerbation restart albuterol. Already getting Advair Diarrhea will check for C diff. if negative and diarrhea slows down may DC home Chronic GERD PPI ROYER Depression Hypertension blood pressure borderline will hold blood pressure medications hydrochlorothiazide and valsartan Hyperlipidemia DVT prophylaxisLovenox Do not resuscitate Disposition: PT OT to see Subjective Date/time seen: 03/25/24 17:12 Review of Systems Review of Systems: All systems reviewed & are unremarkable except as noted in HPI and below Exam Narrative: GENERAL: Well-appearing, well-nourished, not in acute distress HEAD: Normocephalic, atraumatic. EYES: PERRLA and EOMI. ENT: Nares clear, no rhinorrhea or epistaxis. Mucous membranes moist. NECK: Supple. No adenopathy or masses. CHEST: No respiratory distress. Wheezy HEART: Regular rate and rhythm. No murmur heard. Normal peripheral pulses. ABDOMEN: Soft, abdomen is otherwise nontender, nondistended, normal active bowel sounds. MSK: Normal range of motion. No edema. SKIN: Warm, dry, no rash. NEURO: Alert and oriented x4. No focal deficits. 5/5 strength and sensation to the upper and lower extremities. No Saddle anesthesia PSYCH: Normal mood and affect. Objective Data Vital Signs Vital Signs: Vital Signs - 24 hr 03/24/24 20:00 03/24/24 21:32 03/24/24 21:36 Temperature 98.7 F Pulse Rate 66 Respiratory Rate 20 Blood Pressure 113/49 L Pulse Oximetry 93 96 Oxygen Delivery Room Air Room Air 03/25/24 06:00 03/25/24 08:00 03/25/24 08:59 Temperature 97.8 F Pulse Rate 79 Respiratory Rate 20 Blood Pressure 102/76 Pulse Oximetry 94 97 Oxygen Delivery Room Air Room Air 03/25/24 08:59 03/25/24 13:05 03/25/24 14:00 Temperature 98.2 F Pulse Rate 72 77 Respiratory Rate 20 22 H Blood Pressure 146/90 H Pulse Oximetry 96 Oxygen Delivery Room Air Intake/Output Intake/Output: Intake & Output 03/22/24 03/23/24 03/24/24 03/25/24 23:59 23:59 23:59 23:59 Intake Total 1002 3190 1590 680 Output Total 950 Balance 1002 2240 1590 680 Meds/Results Medications: Active Medications Generic Name Dose Route Start Last Admin Trade Name Freq PRN Reason Stop Dose Admin Acetaminophen 650 mg 03/23/24 00:33 03/25/24 16:44 Acetaminophen 325 Mg Tablet PO 650 mg Q4H PRN Administration Mild Pain (1-3) or Fever Hydrocodone Bitart/Acetaminophen 1 tab 03/23/24 10:46 03/25/24 09:33 Hydrocodone/Acetaminophen (*Crx) 5-325 Mg Tablet PO 1 tab Q6H PRN Administration pain 4-6 Albuterol 2 puff 03/23/24 10:50 03/25/24 02:26 Albuterol Sulfate (*Sp) Aerosol 1 Puff INHALATION 2 puff Q4H PRN Administration SHORTNESS OF BREATH/WHEEZING Ascorbic Acid 500 mg 03/24/24 09:00 03/25/24 09:26 Ascorbic Acid 500 Mg Tablet PO 500 mg DAILY BREE Administration Aspirin 81 mg 03/24/24 09:00 03/25/24 09:25 Aspirin 81 Mg Chewable Tablet PO 81 mg DAILY BREE Administration Bupropion HCl 150 mg 03/23/24 12:00 03/25/24 09:26 Bupropion Hcl Sr (12 Hr) 150 Mg Tab BY MOUTH 150 mg DAILY BREE Administration Cefdinir 300 mg 03/25/24 21:00 Cefdinir 300 Mg Capsule PO Q12HR BREE Enoxaparin Sodium 40 mg 03/24/24 09:00 03/25/24 09:26 Enoxaparin 40 Mg/0.4 Ml Syringe SUB-Q 40 mg DAILY BREE Administration Fish Oil 1 gm 03/24/24 09:00 03/25/24 09:25 [place] 3 Polyunsat Fatty Acids 1 Gm Cap PO 1 gm DAILY BREE Administration Hydromorphone HCl 0.5 mg 03/23/24 00:33 03/23/24 01:42 Hydromorphone Hcl Inj (*Crx) 1 Mg/Ml Syr IV PUSH 0.5 mg Q4H PRN Administration Pain Rated 7-10 Lidocaine 1 patch 03/23/24 11:05 03/25/24 09:27 Lidocaine 5% Patch TRANSDERM 1 patch DAILY BREE Administration Meloxicam 7.5 mg 03/24/24 09:00 03/25/24 09:26 Meloxicam 7.5 Mg Tablet PO 7.5 mg DAILY BREE Administration Montelukast Sodium 10 mg 03/23/24 12:00 03/25/24 09:26 Montelukast Sodium 10 Mg Tablet BY MOUTH 10 mg DAILY BREE Administration Multivitamins Therapeutic 1 tablet 03/24/24 09:00 03/25/24 09:26 Multivitamins Therapeutic Tab (*Bkc) PO 1 tablet DAILY BREE Administration Multivitamins/Minerals 1 tablet 03/23/24 17:00 03/25/24 16:45 Opti-Gen Tab PO 1 tablet BID BREE Administration Ondansetron HCl 4 mg 03/23/24 00:33 03/23/24 21:34 Ondansetron Inj 4 Mg/2 Ml Vial IV PUSH 4 mg Q4H PRN Administration Nausea Polyethylene Glycol 17 gm 03/24/24 09:00 03/25/24 09:28 Polyethylene Glycol 3350 17 Gm Powd.Pack PO Not Given QAM [facility] Saccharomyces Boulardii 250 mg 03/24/24 09:00 03/25/24 09:25 Saccharomyces Boulardii 250 Mg Capsule PO 250 mg DAILY BREE Administration Fluticasone/Salmeterol 2 puff 03/23/24 20:00 03/25/24 08:59 Fluticasone/Salmeterol 45-21 Mcg Inhaler 1 Puff INHALATION 2 puff Q12HRT BREE Administration Simvastatin 40 mg 03/24/24 09:00 03/25/24 09:26 Simvastatin 20 Mg Tablet PO 40 mg DAILY BREE Administration Tizanidine HCl 4 mg 03/23/24 10:46 03/24/24 20:41 Tizanidine Hcl 4 Mg Tablet PO 4 mg QHS PRN Administration muscle spasticity Radiology Results: ITS Impressions Abdomen/Pelvis CT 03/22/24 20:46 IMPRESSION: 1. Sliding hiatus hernia. 2. Constipation. 3. No evidence of appendicitis, diverticulitis or intestinal obstruction. 4. Multiple tiny hepatic cysts. Chest X-Ray 03/23/24 08:06 IMPRESSION: 1. No acute cardiopulmonary disease. 2. Large hiatal hernia.
[2024-03-25 18:11] LABS: Toxigenic C. Diff NEGATIVE (NEGATIVE)
[2024-03-25] MEDS: CEFDINIR 300 MG CAPSULE PO (21:22)
[2024-03-25] MEDS: TIZANIDINE HCL 4 MG TABLET PO (21:28)
[2024-03-25 22:00] VITALS: BP 164/61; PULSE 62; RESP 18; TEMP 36.9; O2SAT 95
[2024-03-26] MEDS: HYDROcodone/acetaminophen (*CRX) 5-325 MG TABLET 1 TAB PO ×3 (01:30→14:07)
[2024-03-26 06:00] VITALS: BP 157/91; PULSE 74; RESP 18; TEMP 36.6; O2SAT 99
[2024-03-26] MEDS: ACETAMINOPHEN 325 MG TABLET 650 MG PO ×2 (06:20→12:06)
[2024-03-26 08:18] VITALS: PULSE 64; RESP 18; O2SAT 97
[2024-03-26] MEDS: FLUTICASONE/SALMETEROL 45-21 MCG INHALER 1 PUFF 2 PUFF INHALATION (08:18)
[2024-03-26] MEDS: ASPIRIN 81 MG CHEWABLE TABLET PO (09:13)
[2024-03-26] MEDS: OMEGA 3 POLYUNSAT FATTY ACIDS 1 GM CAP PO (09:13)
[2024-03-26] MEDS: SACCHAROMYCES BOULARDII 250 MG CAPSULE PO (09:13)
[2024-03-26] MEDS: ASCORBIC ACID 500 MG TABLET PO (09:13)
[2024-03-26] MEDS: OPTI-GEN TAB 1 TABLET PO (09:13)
[2024-03-26] MEDS: SIMVASTATIN 20 MG TABLET 40 MG PO (09:13)
[2024-03-26] MEDS: CEFDINIR 300 MG CAPSULE PO (09:13)
[2024-03-26] MEDS: buPROPion HCL SR (12 HR) 150 MG TAB BY MOUTH (09:13)
[2024-03-26] MEDS: MONTELUKAST SODIUM 10 MG TABLET BY MOUTH (09:14)
[2024-03-26] MEDS: ENOXAPARIN 40 MG/0.4 ML SYRINGE SUB-Q (09:14)
[2024-03-26] MEDS: LIDOCAINE 5% PATCH 1 PATCH TRANSDERM (09:14)
[2024-03-26] MEDS: MELOXICAM 7.5 MG TABLET PO (09:14)
[2024-03-26] MEDS: MULTIVITAMINS THERAPEUTIC TAB (*BKC) 1 TABLET PO (09:14)
[2024-03-26 14:00] VITALS: BP 135/77; PULSE 68; RESP 16; TEMP 36.7; O2SAT 97
[2024-03-26 15:40] VITALS: PULSE 69; RESP 18
[2024-03-26] MEDS: ALBUTEROL SULFATE (*SP) AEROSOL 1 PUFF 2 PUFF INHALATION (15:40)
--- NOTE | 2024-03-26 16:00 | P.DS_ITS ---
DS: Admitting Diagnosis Discharge Date 03/26/24 Admitting Diagnosis Back pain DS: Discharge Diagnosis Discharge Diagnosis (1) Acute UTI: Code(s): N39.0 - Urinary tract infection, site not specified Status: Acute (2) Lumbar stenosis with neurogenic claudication: Code(s): M48.062 - Spinal stenosis, lumbar region with neurogenic claudication Status: Acute (3) Chronic back pain: Code(s): M54.9 - Dorsalgia, unspecified; G89.29 - Other chronic pain Status: Acute (4) Asthma: Code(s): J45.909 - Unspecified asthma, uncomplicated Status: Acute (5) Chronic GERD: Code(s): K21.9 - Gastro-esophageal reflux disease without esophagitis Status: Acute DS: Summary Hospital Course Reason for hospitalization: 79yo female with chronic lower back pain who presents with acute back pain. Please see H&P for details. Hospital Course: Patient presented with acute on chronic lower back pain on left side with associated fever and generalized body aches and flu-like symptoms. She follows with Neurosurgery for her back issue and is on chronic pain medications as well. WBC was normal with mild anemia at 10.4 and mild thrombocytopenia. Creatinine 1.1 and electrolytes were unremarkable. LFTs were unremarkable. Urinalysis showed concerns for UTI. Influenza, RSV and COVID PCR swab was negative. Chest x-ray without any acute cardiopulmonary pathology. CT abdomen pelvis with IV contrast showed sliding hiatal hernia, constipation and multiple tiny hepatic cysts but no evidence of appendicitis diverticulitis or intestinal obstruction. Patient received IV fluids as well as IV ceftriaxone and then meropenem in the ER. Urine culture which came back with mixed genital bessy. She was changed to oral antibiotics but stopped now. Lidocaine patch added but she states this is not that effective. She was started on Miralax for constipation but developed diarrhea. C diff toxin negative. Diarrhea improved. She is eager for discharge. She feels well. No further fevers. Suspected she had a viral disease with low plt, slightly elevated AST and flu-like symptoms. She overall did well and was able to be discharged home on 03/26/24. Status at Discharge Cognitive/behavioral status at discharge: stable Time Spent with Patient Time attestation: Total time spent providing and/or coordinating discharge services: 35 minutes Time spent: Greater than 30 minutes Exam Narrative: AF 98.0 135/77 69 18 97% ra Gen - NARD Chest - CTA bilaterally, nml RR CV - RRR S1/S2 Abd - Soft, NT/ND, Positive BS Ext - No pedal edema Neuro - Alert and oriented. Psych - Nml mood and affect Skin - Warm and dry DS: Data Data Completed and Pending Labs on day of discharge: Labs from last 24 hours 03/25/24 17:15 C. difficile (PCR) Negative Discharge Plan Discharge Attending physician on discharge: Sy Burton Discharging Clinician: Sy Burton Anticipated Discharge Date/Time: 03/26/24 16:20 Patient Disposition: Home, Self-Care Activity: as tolerated Diet: regular Discharge Instructions: Check blood pressure 1 to 2 times a day. Record and bring into your doctor for review. Call your doctor if your blood pressure is greater than 180/110. Take precautions to avoid falls. Rise slowly from a lying or sitting position. Pause before standing or walking. Contact your doctor or call 911 and come to the Emergency Room if you have fevers, worsening back pain or other worrisome symptoms. Follow-up with your primary care provider in 1-2 weeks. Please call for appointment. Follow-up with your neurosurgeon at next scheduled appointment. Please call for appointment. Thank you for using [facility] for your health care needs. Patient Instructions: Antibiotic Form Patient Language: Icelandic Stand Alone Forms: General Discharge Information Follow-up/Referrals: Yasemin Rivera APRN [Primary Care Provider] - Call for Appointment Discharge Medications: Continued Fish Oil 100-160-1,000 mg capsule 1 cap PO DAILY multivitamin Tablet 1 tablet PO DAILY aspirin [Ama Chewable Aspirin] 81 mg tablet,chewable 81 mg PO DAILY Daily Probiotic (S. boulardii) 250 mg capsule 250 mg PO DAILY PreserVision AREDS-2 250-90-40-1 mg capsule 1 tablet PO BID budesonide-formoterol [Symbicort] 80-4.5 mcg/actuation HFA aerosol inhaler 2 puff inhalation Q12H Qty: 10.2 4RF simvastatin 40 mg tablet 40 mg PO DAILY Qty: 90 3RF valsartan [Diovan] 160 mg tablet 160 mg PO DAILY Qty: 90 1RF tizanidine 4 mg tablet 4 mg PO QHS PRN (Reason: muscle spasticity) Qty: 30 2RF ascorbic acid (vitamin C) [Vitamin C] 500 mg Tablet 500 mg PO DAILY bupropion HCl 150 mg tablet sustained-release 12 hr See Rx Instructions .ROUTE .COMPLEX Qty: 90 1RF Dose Instruction: TAKE 1 TABLET BY MOUTH IN THE MORNING Rx Instructions: TAKE 1 TABLET BY MOUTH IN THE MORNING hydrochlorothiazide 12.5 mg tablet See Rx Instructions .ROUTE .COMPLEX Qty: 90 0RF Dose Instruction: Take 1 tablet by mouth once daily Rx Instructions: Take 1 tablet by mouth once daily albuterol sulfate 90 mcg/actuation HFA aerosol inhaler See Rx Instructions .ROUTE .COMPLEX Qty: 9 0RF Dose Instruction: INHALE 2 PUFFS BY MOUTH EVERY 4 HOURS NEEDED FOR SHORTNESS OF BREATH FOR WHEEZING Rx Instructions: INHALE 2 PUFFS BY MOUTH EVERY 4 HOURS NEEDED FOR SHORTNESS OF BREATH FOR WHEEZING meloxicam 7.5 mg tablet 7.5 mg PO DAILY Qty: 30 1RF hydrocodone-acetaminophen 5-325 mg tablet 1 tablet PO Q6H PRN (Reason: pain) Qty: 120 0RF montelukast 10 mg tablet See Rx Instructions .ROUTE .COMPLEX Qty: 30 1RF Dose Instruction: Take 1 tablet by mouth once daily Rx Instructions: Take 1 tablet by mouth once daily Date of admission: 03/23/24 00:33 Primary Care Provider: Yasemin Rivera Admitting Provider: Carrie Car V. Attending physician on admission: Carrie Car V. Condition: Stable Hospitalist MIPS Heart Failure (Exclusion) Patient has history of Heart Transplant or Left Ventricular Assistive Device?: No IF YES, STOP HERE Heart Failure (Qualifier) Patient has current or prior documentation of LVEF less than or equal to 40%, or mod/servere depressed LVSF?: No IF NO, STOP HERE
--- OUTSIDE RECORDS SUMMARY | 2024-03-30 00:09 | XMS_ITS | Patient Health Record ---
Author Organization [facility] Billing Info Address [address] [place] [address] Care Team Providers Care Kitchen Clerk Name Role Phone Morelia Cardenas Primary Care Provider Lashon eliotilaMORELIA Fontaine Unavailable Allergies Allergen (clinical drug ingredient) Drug/Non Drug Allergy documented on EMR Reaction Allergy Type Onset Date Status clindamycin Clindamycin HCl Unknown Drug Allergy Active niacin Niacin Unknown Drug Allergy Active Penicillin Unknown Drug Allergy Active Reason For Referral No Information Medications Medication SIG (Take, Route, Frequency, Duration) Notes Start Date End Date Status Tramadol HCl 50 MG 1 tablet as needed O rally Once a day Active Simvastatin 40 MG 1 tablet in the even ing Orally Once a day for 30 day(s) Active Losartan Potassium 50 MG 1 tablet Orally Once a day for 30 day(s) Active Multivitamin - as directed Orally Active Vitamin D3 1101430 UNIT/GM as directed Active Cyclobenzaprine HCl 10 MG 1 tablet as ne eded Orally Three times a day for 30 day(s) 04/03/2019 Active PreserVision AREDS - as directed Orally Active Fish Oil 1000 MG 1 capsule Orally Onc e a day for 30 day(s) Active Immunizations Vaccine Route Administration Date Status Comme nts FLU (Past vaccine of unknown type) Unknown 11/25/2018 A dministered Social History Tobacco Use: Social History Observation Description Date Details (start date - stop date) Never Smoker NA - NA Tobacco Status: Question Answer Notes Patient is a never smoker Problems Problem Type SNOMED Code ICD Code Onset Dates Problem Status W/U Status Risk Notes Problem Hypertension (08976491) Hypertension (I10) Active confirmed Problem Hyperlipidaemia (65033775) Hyperlipemia (E78.5) Active confirmed Problem Osteoarthritis (576485339) Osteoarthritis (M19.90) Active confirmed Plan Of Treatment No Information Insurance Providers Payer Name Payer Address Payer Phone Subscriber Number Group Number Insured Name Patient Relationship to Insured Coverage Start Date Coverage End Date [facility] H[facility] ADVANTAGE DUAL PLAN [address] [address] [place], [place] [id number] CORY REGALADO Self - patient is the insured 0 9 Medical (General) History Medical History History ICD Code Hypertension I10 Hyperlipemia E78.5 Osteoarthritis M19.90 Surgical History Surgery Date(Month/Year) breast biopsy tubal ligation cataract surgery colonoscopy-neg 03/26/2014 mammogram-negative 08/24/2018 Bone Density-Osteopenia 08/24/2017
== END 2024-03-26 17:20 | disposition home or self-care (01) ==
LOC: ANHED 19:40 → ANHIMU 03-23 01:14 → ANH3MEDSUR 03-24 14:53 → ANHIMU 03-27 08:02
PROVIDERS: Internal Medicine; Admitting Provider Internal Medicine; Emergency Provider Physician Assistant; PCP Nurse Practitioner Family; Visit Provider Internal Medicine
DX: N39.0 Urinary tract infection, site not specified (principal); M48.062 Spinal stenosis, lumbar region with neurogenic claudication; G89.29 Other chronic pain; J45.909 Unspecified asthma, uncomplicated; G47.33 Obstructive sleep apnea (adult) (pediatric); K21.9 Gastro-esophageal reflux disease without esophagitis; F32.A Depression, unspecified; E78.00 Pure hypercholesterolemia, unspecified; I10 Essential (primary) hypertension; M19.90 Unspecified osteoarthritis, unspecified site; D64.9 Anemia, unspecified; D69.6 Thrombocytopenia, unspecified; Z79.51 Long term (current) use of inhaled steroids; Z79.82 Long term (current) use of aspirin; Z79.899 Other long term (current) drug therapy; Z86.16 Personal history of COVID-19; Z80.0 Family history of malignant neoplasm of digestive organs; Z98.51 Tubal ligation status
CPT/HCPCS: 36415; 71045; 74019; 74177; 80053; 81001; 83690; 83735; 85025; 87086; 87493; 87637; 94640; 96361; 96365; 96372; 96375; 96376; 97161; 97165; 99285; A9270; G0378; J0696; J1171; J1650; J2185; J2405; J7030; Q9967

== ENCOUNTER 2024-04-07 09:32 | Outpatient (CLI) | payer MEDICARE, SELFPAY ==
--- NOTE | ~2024-04-07 | DEXA_ITS ---
Bone Density Report Name: CORY HEAD Age: 79 Sex: Female Ethnicity: White Date of : 1945 Indication: postmenopausal; screening for osteoporosis; parental hip fracture; height loss; asthma or emphysema; Referring Provider: ROSA PATEL Study: Bone densitometry was performed. Exam Date: April 07, 2024 Accession number: [id number] Bone Density: Region BMD T-score Z-score Classification AP Spine(L1-L4) 1.230 1.7 4.2 Normal Femoral Neck (Left) 0.610 -2.2 0.1 Osteopenia Total Hip (Left) 0.709 -1.9 0.0 Osteopenia Femoral Neck (Right) 0.601 -2.2 0.0 Osteopenia Total Hip (Right) 0.717 -1.8 0.1 Osteopenia Femoral Neck Mean 0.606 -2.2 0.0 Osteopenia Total Hip Mean 0.713 -1.9 0.1 Osteopenia World Health Organization criteria for BMD impression classify patients as: Normal (T-score at or above -1.0), Osteopenia (T-score between -1.0 and -2.5), or Osteoporosis (T-score at or below -2.5). 10-year Fracture Risk(1): Major Osteoporotic Fracture 27% Hip Fracture 17% Reported Risk Factors: [place] (), Neck BMD=0.601, BMI=31.3, parental fracture (1) FRAX(R) Version 3.08. Fracture probability calculated for an untreated patient. Fracture probability may be lower if the patient has received treatment. Clinical Information Provided by Patient: Parent has had a hip fracture Has used the following medications: Vitamin D, Calcium Has the following medical conditions: Asthma or Emphysema Patient maximum height was 67 Menopause Age: 51 Onset of menses at age 14 Number of children 1 Impression: The patient has low bone mass, based on the Left Femoral Neck T-score. The patient has risk factors, including: parental hip fracture. Discussion: BONE DENSITY IS LOW AT ONE OR MORE SKELETAL SITES. This patient's lowest T-score is low at one or more skeletal sites. It meets the World Health Organization's (WHO) criteria for ?low bone mass? (T-score between -1.0 and -2.5). The patient's 10-year risk of fracture as calculated by FRAX is less than the threshold where pharmacological therapy is recommended by the National Osteoporosis Foundation (NOF). However, all treatment decisions require clinical judgment and consideration of individual patient factors, including patient preferences, comorbidities, previous drug use, risk factors not captured in the FRAX model (e.g., frailty, falls, vitamin D deficiency, increased bone turnover, interval significant decline in bone density) and possible under or overestimation of fracture risk by FRAX. The patient should follow a healthful lifestyle (good nutrition with adequate calcium and vitamin D, and appropriate weight-bearing exercise). Follow-Up: Consider repeating this study in 2 to 3 years to reassess this patient's status, or sooner if there is some new clinical indication. Reported by: SHIVANI on 04/07/2024 9:52:00 AM. Reviewed, dictated and finalized at location A.
== END 2024-04-07 09:33 | disposition home or self-care (01) ==
LOC: CHSIMG 09:33
PROVIDERS: PCP Nurse Practitioner Family; Visit Provider Neurological Surgery
DX: Z78.0 Asymptomatic menopausal state (principal); M85.89 Other specified disorders of bone density and structure, multiple sites
CPT/HCPCS: 77080

== ENCOUNTER 2024-07-08 10:07 | Outpatient (CLI) | payer MEDICARE, SELFPAY ==
--- NOTE | ~2024-07-08 | XR_ITS ---
Thoracic spine: Clinical Indication: Pain AP and lateral views were performed. No fracture is seen. There is mild kyphosis. There are mild to moderate degenerative disc changes at the mid thoracic spine. Paravertebral soft tissues appear normal. Large hiatal hernia incidentally no karey. Impression: Mild spondylosis with mild kyphosis. Large hiatal hernia noted. Reviewed, dictated and finalized at [facility]. Impression: Mild spondylosis with mild kyphosis. Large hiatal hernia noted.
--- NOTE | ~2024-07-08 | XR_ITS ---
Supine and upright views of the abdomen Clinical history: Abdominal pain Findings: Bowel gas pattern is nonspecific. No evidence for obstruction or free air. No abnormal mass lesion or calcification is seen. There is mild scoliosis of the spine with degenerative change prese nt.. Impression: No acute abnormality is seen. Reviewed, dictated and finalized at location . Impression: No acute abnormality is seen.
== END 2024-07-08 10:08 | disposition home or self-care (01) ==
PROVIDERS: PCP Nurse Practitioner Family; Visit Provider Nurse Practitioner Family
DX: M47.814 Spondylosis without myelopathy or radiculopathy, thoracic region (principal); M40.204 Unspecified kyphosis, thoracic region; K44.9 Diaphragmatic hernia without obstruction or gangrene; R10.9 Unspecified abdominal pain
CPT/HCPCS: 72072; 74018

== ENCOUNTER 2024-07-30 07:55 | Outpatient (CLI) | payer MEDICARE, SELFPAY ==
--- NOTE | ~2024-07-30 | US_ITS ---
EXAMINATION:US venous doppler LE LT INDICATION:Left lower extremity swelling TECHNIQUE: Multiple grayscale, color flow and Doppler images of the left lower extremity deep venous systems were obtained and reviewed. COMPARISON:No prior studies for comparison. FINDINGS: The common femoral, superficial femoral and popliteal veins demonstrate normal respiratory variation, augmentation and compressibility. Color flow is also seen within the posterior tibial, pe roneal, greater saphenous and profunda veins. IMPRESSION: 1: No lower extremity deep venous thrombosis. Reviewed, dictated and finalized at location A.
--- NOTE | ~2024-07-30 | CT_ITS ---
Clinical Indication: Other specified disease of liver CT Scan of the Chest, Abdomen, and Pelvis with Contrast: Technique: Contiguous sections were acquired throughout the chest, abdomen, and pelvis after intraven ous administration of 100 cc of Omnipaque 350. Dose reduction technique was used on this scan by jose l fair automated exposure control and iterative reconstruction technique. The dose-length product (DL P) was 750.68 mGy-cm. Comparison: 03/22/2024 Findings: There is no evidence of any significant mediastinal, hilar or axillary lymphadenopathy. The mediastin al soft tissues appear normal. Moderate hiatal hernia present. There is no evidence of pleural or pericardial effusion. The lungs are clear. No pulmonary nodules or infiltrates are noted. Small exophytic mass the anterior left hepatic lobe is present with peripheral calcification. Stable small probable hepatic cyst. The spleen, pancreas, gallbladder, adrenals and kidneys are within brenden l limits. There are atherosclerotic calcifications of the aorta. No lymphadenopathy. No bowel obstruction or bowel wall thickening. There is no evidence to suggest acute appendicitis. Urinary bladder is unremarkable. No pelvic mass seen. No ascites. Impression: Stable small exophytic mass at the anterior left hepatic lobe with peripheral calcification, as above . Moderate hiatal hernia. Reviewed, dictated and finalized at location . Impression: Stable small exophytic mass at the anterior left hepatic lobe with peripheral c alcification, as above. Moderate hiatal hernia.
--- OUTSIDE RECORDS SUMMARY | 2024-07-30 08:04 | XMS_ITS | Patient Health Record ---
Author Organization [facility] Billing Info Address [address] [place] [address] Care Team Providers Care Box Feeder Name Role Phone Morelia Cardenas Primary Care Provider Lashon vailaMORELIA Fontaine Unavailable Allergies Allergen (clinical drug ingredient) [...] - as directed Orally Active Vitamin D3 1763544 UNIT/GM as directed Active Cyclobenzaprine HCl 10 [...] Status W/U Status Risk Notes Problem Hypertension (83947323) Hypertension (I10) Active confirmed Problem Hyperlipemia (E78.5) Active confirmed Problem Osteoarthritis (105106429) Osteoarthritis (M19.90) Active confirmed Plan Of Treatment No Information Insurance Providers Payer Name Payer Address Payer Phone Subscriber Number Group Number Insured Name Patient Relationship to Insured Coverage Start Date Coverage End Date [facility] HMO [facility] ADVANTAGE DUAL PLAN [address] [address] [place], [place] [id number] CORY REGALADO Self - patient is the insured 0 9 Medical (General) History Medical History History ICD Code Hypertension I10 Hyperlipemia E78.5 Osteoarthritis M19.90 Surgical History Surgery Date(Month/Year) breast biopsy tubal ligation cataract surgery colonoscopy-neg 03/26/2014 mammogram-negative 08/24/2018 Bone Density-Osteopenia 08/24/2017
--- OUTSIDE RECORDS SUMMARY | 2024-07-30 08:04 | XMS_ITS | Clinical Summary ---
Author Organization [facility] Address [address] [address] Phone Care Team Providers Care Social Media Marketing Specialist Name Role Phone Teo Puente Primary Care Provider [phone] Social History Tobacco Use Types Packs/Day Years Used Date Smoking Tobacco: Never Assessed Comments Unknown Sex and Gender Information Value Date Recorded Sex Assigned at Not on file Legal Sex Female 7:21 PM CDT Gender Identity Not on file Sexual Orientation Not on file Plan of Treatment Health Maintenance Due Date Last Done Comments DEXA Bone Density 1945 Hepatitis C Virus (HCV) Screening 1945 TdaP Immunization 1945 Pneumococcal Immunization (5 0+ years) (1 of 1 - PCV) 1996 Zoster Immunization (1 of 2) 1996 Respiratory Syncytial Virus (RSV) Immunization (Adult) (1 - 1-dose 75+ series) 2021 Influenza Immunization (#1) 2023 SARS-COV-2 Immunization ( - 2023-25 season) 2023 Colonoscopy High Risk Discontinued 10/30/2019 , 09/17/2019 Colonoscopy Discontinued 10/30/2019, 09/17/2019 Colorectal Cancer Screening Discontinued Cologuard Discontinued Hepatitis B Immunization Aged Out No longer eligible based on patient's age to complete this topic Immunochemical Fecal Occult Blood Discontinued Meningococcal Immunization (ACWY) Aged Out No longer eligible based on patient's age to complete this topic Rotavirus Immunization Aged Out No lo nger eligible based on patient's age to complete this topic Procedures Procedure Name Priority Date/Time Associated Diagnosis Comments COLONOSCOPY Routine 10/30/2019 from Last 3 Months or Most Recently Relevant to Health Maintenance Results * COLONOSCOPY (10/30/2019) Jose Dorado DO PROCEDURE/MINOR SURGICAL ORDERA BLES Final Result from Last 3 Months or Most Recently Relevant to Health Maintenance Insurance MEDICARE C [facility] on file Care Teams Social Media Marketing Specialist Relationship Specialty Start Date End Date Teo Puente DO [address] [facility] [address] [place] [address] PCP - General Internal Medicine 10/10/19
--- OUTSIDE RECORDS SUMMARY | 2024-07-30 08:04 | XMS_ITS | Continuity of Care Document ---
Author Organization [facility] Address [address] [place] [address] Phone Care Team Providers Care Veterans Services Specialist Name Role Phone Pretty OD, Jose Unavailable Unavailable Procedures Procedure Date Office/outpatient Visit, Est Eye Exam Established Pt Post-op Follow-up Visit Post-op Follow-up Visit Remove Cataract, Insert Lens Office/outpatient Visit, New Script Printed/Phoned Pt Requ Or Pharm N ot Availab Echo Exam Of Eye Advance Directives Directive Yes / No Effective Date File Name No Information Encounters Encounter Description Practice Location Reason(s) For Visit Diagnoses Date Provider Providers Copied on Encounter Office/outpat ient Visit, Est [facility], [address] [place] [address] [address], [place], [place], [id number], tel:[phone] [facility] No Information Julito-0 4-201 0 Pretty OD Joes. [address], [place], [address], [place]. tel:[phone] [facility], [address], [place], [place], [id number], [place] tel:[phone] [facility] No Information July-0 7-201 0 Pretty OD Jose. [address] , [address], [place], [address], [place]. tel:[phone] [facility], [address], [place], [place], [id number], [place] tel:[phone] [facility] No Information 1 9 Doisy Edward. [address] , [address], [place], [address], [place]. tel:[phone] Referring Provider: [place], [address] [facility], [place], [address]. tel:[phone] [facility], [address], [place], [place], [id number], [place] tel:[phone] [facility] No Information Nov-0 2200 9 Doisy Edward. [address], [place], [place], [facility], [place]. tel:[phone] [facility], [address], [place], [place], [address], [place] tel:[phone] [facility] No Information Sep-0 9 Doisy Edward. [address], [place], [place], [facility], [place]. tel:[phone] Office/outpat ient Visit, [facility], [address], [place], [place], [address], [place] tel:[phone] [facility] No Information 2 9 Doisy Edward. [address], [place], [place], [facility], [place]. tel:[phone] Referring Provider: Lisa Regalado, [address] [place] [address] [facility], [place], [address]. Family History Family Member Type Diagnosis Age At Onset No Information Payers Payer name Insurance type Covered libertarian ID Authoriza tion(s) No Information Social History Type Description Quantity Date Captured Comments Sex Female Smoking Status No Information Chief Complaint And Reason For Visit No Information Reason For Referral Reason For Referral No Information History Of Present Illness Encounter Date Complaint History Of Prese nt Illness No Information Functional Status Date Functional Assessmen t No Information Instructions Date Instruction Additional Infor mation No Information Assessments Type Assessment Date No Information Patient Care Teams Name Effective Dates (start - stop) Status Members No Information
[2024-07-30 08:40] LABS: Estimated Glomerular Filt Rate 43
== END 2024-07-30 07:56 | disposition home or self-care (01) ==
PROVIDERS: PCP Nurse Practitioner Family; Visit Provider Nurse Practitioner Family
DX: K76.89 Other specified diseases of liver (principal); R91.1 Solitary pulmonary nodule; M79.89 Other specified soft tissue disorders; I82.409 Acute embolism and thrombosis of unspecified deep veins of unspecified lower extremity
CPT/HCPCS: 71260; 74177; 93971; Q9967

== ENCOUNTER 2024-09-30 14:51 | Outpatient (CLI) | payer MEDICARE, SELFPAY ==
--- NOTE | ~2024-09-30 | MM_ITS ---
EXAMINATION: MM screening [facility] BI w nilsa HISTORY: Screening TECHNIQUE: Craniocaudal and mediolateral oblique 3-D tomosynthesis images were obtained and synthetic 2-D images were generated. CAD analysis was submitted and interpreted. COMPARISON: Comparison to multiple prior studies sequentially, with oldest reviewed study dated 10/08. BREAST PARENCHYMAL COMPOSITION: Not dense: There are scattered areas of fibroglandular density. FINDINGS: There is no evidence of suspicious mass, calcification, or architectural distortion to sugg est malignancy in either breast. There has been no suspicious interval change. IMPRESSION: 1. No mammographic evidence of malignancy. 2. Recommend routine screening mammography in one year. BI-RADS Category 1: Negative Reviewed, dictated and finalized at location A.
== END 2024-09-30 14:52 | disposition home or self-care (01) ==
LOC: MICIMG 14:52
PROVIDERS: PCP Nurse Practitioner Family; Visit Provider Nurse Practitioner Family
DX: Z12.31 Encounter for screening mammogram for malignant neoplasm of breast (principal)
CPT/HCPCS: 77063; 77067

== ENCOUNTER 2024-11-21 00:01 | Day surgery (SDC) | payer MEDICARE, SELFPAY ==
[2024-11-07 09:36] VITALS: BMI 32.1
--- OUTSIDE RECORDS SUMMARY | 2024-11-21 00:06 | XMS_ITS | Patient Health Record ---
Author Organization [facility] Billing Info Address [address] [place] [id number] Care Team Providers Care Channel Lip Stiffener Insoles Name Role Phone Morelia Cardenas Primary Care [...] - as directed Orally Active Vitamin D3 [id number] UNIT/GM as directed Active Cyclobenzaprine HCl 10 [...] Status W/U Status Risk Notes Problem Hypertension (43474105) Hypertension (I10) Active confirmed Problem Hyperlipidaemia (47241436) Hyperlipemia (E78.5) Active confirmed Problem Osteoarthritis (043012729) Osteoarthritis (M19.90) Active confirmed Plan Of Treatment No Information Insurance Providers Payer Name Payer Address Payer Phone Subscriber Number Group Number Insured Name Patient Relationship to Insured Coverage Start Date Coverage End Date [facility] H[facility] ADVANTAGE DUAL PLAN [address] [address] [place], [place] [id number] CORY REGALADO Self - patient is the insured 0 [phone] Medical (General) History Medical History History ICD Code Hypertension I10 Hyperlipemia E78.5 Osteoarthritis M19.90 Surgical History Surgery Date(Month/Year) breast biopsy tubal ligation cataract surgery colonoscopy-neg 03/26/2014 mammogram-negative 08/24/2018 Bone Density-Osteopenia 08/24/2017
--- OUTSIDE RECORDS SUMMARY | 2024-11-21 00:06 | XMS_ITS | Clinical Summary ---
Author Organization [facility] Address [address] [address] Phone Care Team Providers Care Refuge Manager Name Role Phone Teo Puente Primary Care Provider [phone] Social History Tobacco Use Types Packs/Day Years Used Date Smoking Tobacco: Never Assessed Comments Unknown Sex and Gender Information Value Date Recorded Sex Assigned at Not on file Legal Sex Female 7:21 PM CDT Gender Identity Not on file Sexual Orientation Not on file Plan of Treatment Health Maintenance Due Date Last Done Comments Hepatitis C Virus (HCV) Screening 1945 TdaP Immunization 1945 Pneumococcal Immunization (5 0+ years) (1 of 1 - PCV) 1996 Zoster Immunization (1 of 2) 1996 Respiratory Syncytial Virus (RSV) Immunization (Adult) (1 - 1-dose 75+ series) 2021 SARS-COV-2 Immunization ( - 2023- season) 2023 Influenza Immunization (#1) 2024 Colonoscopy Discontinued 10/30/2019, 09/17/2019 Colorectal Cancer Screening Discontinued Cologuard Discontinued Hepatitis B Immunization Aged Out No longer eligible based on patient's age to complete this topic Human Papillomavirus (HPV) Immunization Aged Out No longer eligible based [...] Relevant to Health Maintenance Insurance MEDICARE C [facility] on file Care Teams Refuge Manager Relationship Specialty Start Date End Date Teo Puente DO [address] [facility] [address] [place] [address] PCP - General Internal Medicine 10/10/19
[2024-11-21 09:16] VITALS: BP 134/59; PULSE 74; RESP 18; TEMP 36.7; O2SAT 96; BMI 31.9
--- NOTE | 2024-11-21 09:24 | WPDANESEPPF ---
Anes - Initial Pre Proc Eval Procedure: Operation Date: 11/21/24 10:30 Proposed Procedures p Screening Colonoscopy - Laureano Pulido MD Date/Time: 11/21/24 09:24 Surgeon: Laureano Pulido MD Pre Op Diagnosis: Screening Patient Data Age: 79 Gender: F Height: 1.63 m Weight: 84.4 kg Last Vital Signs Temp 36.7 C 11/21/24 09:16 Pulse 74 11/21/24 09:16 Resp 18 11/21/24 09:16 BP 134/59 L 11/21/24 09:16 Pulse Ox 96 11/21/24 09:16 O2 Del Method Room Air 11/21/24 09:16 Allergies Allergy/AdvReac Type Severity Reaction Status Date / Time niacin Allergy Intermediate Itching Verified 11/21/24 09:14 clindamycin Allergy Unknown Itching Verified 11/21/24 09:14 Penicillins AdvReac Unknown Nausea and Verified 11/21/24 09:14 Vomiting Home Medications ?Medication ?Instructions ?Recorded ?Confirmed ?Type Saccharomyces boulardii 250 mg 250 mg PO DAILY 01/30/19 11/07/24 History capsule (Daily Probiotic (S. boulardii)) aspirin 81 mg chewable tablet 81 mg PO DAILY 01/30/19 11/21/24 History (Ama Chewable Low Dose Aspirin) multivitamin 1 tablet PO DAILY 01/30/19 11/21/24 History omega 6-rvj-vlq-fish oil 100 1 cap PO DAILY 01/30/19 11/21/24 History mg-160 mg-1,000 mg capsule (Fish Oil) ascorbic acid (vitamin C) 500 mg 500 mg PO DAILY 10/24/19 11/21/24 History tablet (Vitamin C) vit C 250 mg-vit E 90 mg-zinc 40 1 tablet PO BID 03/17/21 11/07/24 History mg-copper 1 iz-pbizga-hwkqqw capsule (PreserVision AREDS-2) simvastatin 40 mg tablet 40 mg PO DAILY #90 tabs 02/14/24 11/21/24 Rx cholecalciferol (vitamin D3) 25 25 mcg PO DAILY 04/30/24 11/21/24 History mcg (1,000 unit) capsule hydrochlorothiazide 12.5 mg tablet See Rx Instructions .Route 08/15/24 11/21/24 Rx .COMPLEX #90 tabs budesonide-formoterol HFA 80 2 puff inhalation Q12H #10.2 grams 08/20/24 11/21/24 Rx mcg-4.5 mcg/actuation aerosol inhaler (Symbicort) bupropion HCl 150 mg tablet,12 hr See Rx Instructions .Route 08/20/24 11/21/24 Rx sustained-release .COMPLEX #90 tabs montelukast 10 mg tablet See Rx Instructions .Route 08/20/24 11/21/24 Rx .COMPLEX #90 tabs omeprazole 20 mg capsule,delayed 20 mg PO DAILY #90 caps 08/20/24 11/21/24 Rx release valsartan 160 mg tablet (Diovan) 160 mg PO DAILY #90 tabs 08/20/24 11/21/24 Rx meloxicam 7.5 mg tablet 7.5 mg PO BID #180 tabs 08/25/24 11/21/24 Rx tizanidine 4 mg tablet 4 mg PO QHS PRN muscle spasticity 09/18/24 11/07/24 Rx #30 tabs albuterol sulfate 90 mcg/actuation See Rx Instructions .Route 09/24/24 11/07/24 Rx aerosol inhaler .COMPLEX #9 grams hydrocodone 5 mg-acetaminophen 325 1 tablet PO Q4H PRN pain #120 tabs 11/12/24 11/21/24 Rx mg tablet Patient hx anesthesia problems: none Family hx anesthesia problems: none Results Review: All pre-operative results and documents have been reviewed as part of the pre-operative evaluation. [facility] Past Medical History Medical History FHx: colon cancer Serum potassium elevated COVID-19 Depression Obstructive sleep apnea Presence of intraocular lens High cholesterol HTN (hypertension) Arthritis Surgical History Surgical History History of dilation and curettage History of bilateral tubal ligation H/O breast biopsy Family History Family History Mother Family history of eczema Family history of osteoporosis Family history of diabetes mellitus in first degree relative Father Carcinoma of colon Patient's father is Family history of glaucoma Sibling Carcinoma of colon Family history of diabetes mellitus in first degree relative Patient's brother is Family history of malignant neoplasm of breast in first degree relative Family history of dementia Other Family history of malignant neoplasm of breast Family history of malignant neoplasm of male breast Social History Social History Smoking status: Never smoker Second hand tobacco smoke exposure: Yes Alcohol intake: former Alcohol use details: Social - wine Substance use: never Substance use type: does not use Do You Feel Safe in your Home?: Yes Lack of Transportation: No Lack of Food: Never True Current Housing: I Have Housing Concerned About Future Housing: No Difficulty Paying Gas/Electric Bills: No Difficulty Paying for Meds: No Currently Unemployed: No Education: Associate Degree Difficulty w/ Childcare or Family Care: No Living arrangements: with family 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 Gender identity (if verbalized by the patient): Female Sexual Orientation (if Verbalized by the Patient): Straight or Heterosexual Spiritual care concerns: No Agree to blood products: Yes Anes - Eval Final PreProcedure Day of Procedure 11/21/24 09:24 Patient weight: obese Heart: regular rate and rhythm Lungs: clear to auscultation Airway: Mallampati scale class II Neurological: alert and oriented Last oral intake: >/= 8 hours ASA classification: III Emergent: no Anesthetic plan: proceed Anesthesia type and monitoring: general GIVS and standard monitoring Results Review: All pre-operative results and documents have been reviewed as part of the pre-operative evaluation. Informed Consent: The patient's anesthetic plan and its attendant risks and benefits were discussed with the patient/family/POA. Questions were solicited and answers provided to the satisfaction of the patient/family/POA.
[2024-11-21] MEDS: LACTATED RINGERS 1,000 ML 150 ML IV CONT (09:30)
--- NOTE | 2024-11-21 09:50 | PM.HPGS ---
History of Present Illness History of Present Illness Consent: Risks, benefits, and alternatives have been discussed and questions answered. Patient agrees to proceed with procedure. Chief complaint: Screening Narrative: Clare Regalado is a 79 year old female with family history colon cancer in father and brother, last colonoscopy 5 years ago Review of Systems Review of Systems: All systems reviewed & are unremarkable except as noted in HPI and below PMFSH Past Medical History Medical History (Updated 11/21/24 @ 09:51 by Laureano Pulido MD) FHx: colon cancer Serum potassium elevated COVID-19 Depression Obstructive sleep apnea Presence of intraocular lens High cholesterol HTN (hypertension) Arthritis Surgical History Surgical History History of dilation and curettage History of bilateral tubal ligation H/O breast biopsy Family History Family History Mother Family history of eczema Family history of osteoporosis Family history of diabetes mellitus in first degree relative Father Carcinoma of colon Patient's father is Family history of glaucoma Sibling Carcinoma of colon Family history of diabetes mellitus in first degree relative Patient's brother is Family history of malignant neoplasm of breast in first degree relative Family history of dementia Other Family history of malignant neoplasm of breast Family history of malignant neoplasm of male breast Social History Social History Smoking status: Never smoker Second hand tobacco smoke exposure: Yes Alcohol intake: former Alcohol use details: Social - wine Substance use: never Substance use type: does not use Do You Feel Safe in your Home?: Yes Lack of Transportation: No Lack of Food: Never True Current Housing: I Have Housing Concerned About Future Housing: No Difficulty Paying Gas/Electric Bills: No Difficulty Paying for Meds: No Currently Unemployed: No Education: Associate Degree Difficulty w/ Childcare or Family Care: No Living arrangements: with family 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 boulardii)) aspirin 81 mg chewable tablet 81 mg PO DAILY 01/30/19 11/21/24 History (Ama Chewable Low Dose Aspirin) multivitamin 1 tablet PO DAILY 01/30/19 11/21/24 History omega 7-khl-liq-fish oil 100 1 cap PO DAILY 01/30/19 11/21/24 History mg-160 mg-1,000 mg capsule (Fish Oil) ascorbic acid (vitamin C) 500 mg 500 mg PO DAILY 10/24/19 11/21/24 History tablet (Vitamin C) vit C 250 mg-vit E 90 mg-zinc 40 1 tablet PO BID 03/17/21 11/07/24 History mg-copper 1 lr-tsbfak-toynzj capsule (PreserVision AREDS-2) simvastatin 40 mg tablet 40 mg PO DAILY #90 tabs 02/14/24 11/21/24 Rx cholecalciferol (vitamin D3) 25 25 mcg PO DAILY 04/30/24 11/21/24 History mcg (1,000 unit) capsule hydrochlorothiazide 12.5 mg tablet See Rx Instructions .Route 08/15/24 11/21/24 Rx .COMPLEX #90 tabs budesonide-formoterol HFA 80 2 puff inhalation Q12H #10.2 grams 08/20/24 11/21/24 Rx mcg-4.5 mcg/actuation aerosol inhaler (Symbicort) bupropion HCl 150 mg tablet,12 hr See Rx Instructions .Route 08/20/24 11/21/24 Rx sustained-release .COMPLEX #90 tabs montelukast 10 mg tablet See Rx Instructions .Route 08/20/24 11/21/24 Rx .COMPLEX #90 tabs omeprazole 20 mg capsule,delayed 20 mg PO DAILY #90 caps 08/20/24 11/21/24 Rx release valsartan 160 mg tablet (Diovan) 160 mg PO DAILY #90 tabs 08/20/24 11/21/24 Rx meloxicam 7.5 mg tablet 7.5 mg PO BID #180 tabs 08/25/24 11/21/24 Rx tizanidine 4 mg tablet 4 mg PO QHS PRN muscle spasticity 09/18/24 11/07/24 Rx #30 tabs albuterol sulfate 90 mcg/actuation See Rx Instructions .Route 09/24/24 11/07/24 Rx aerosol inhaler .COMPLEX #9 grams hydrocodone 5 mg-acetaminophen 325 1 tablet PO Q4H PRN pain #120 tabs 11/12/24 11/21/24 Rx mg tablet Allergies Allergy/AdvReac Type Severity Reaction Status Date / Time niacin Allergy Intermediate Itching Verified 11/21/24 09:14 clindamycin Allergy Unknown Itching Verified 11/21/24 09:14 Penicillins AdvReac Unknown Nausea and Verified 11/21/24 09:14 Vomiting Vital Signs Vital Signs - 24 hr 11/21/24 09:16 Temperature 98.1 F Pulse Rate 74 Respiratory Rate 18 Blood Pressure 134/59 L Pulse Oximetry 96 Oxygen Delivery Room Air Exam Const: General: comfortable and no acute distress HENMT: Face/Nose/Sinus: Normal nares present Eyes: General: appearance normal, both eyes and all related structures Neck: Neck: no JVD Resp: Auscultation: clear to auscultation bilaterally Cardio: Rate: regular rate Rhythm: regular rhythm GI: Inspection: non-distended GI Palp: Yes Soft to palpation Skin: General skin exam: normal color Neuro: Speech: normal speech Extrem: General: normal to inspection Psych: Mental Status: mental status grossly normal Assessment and Plan Assessment and plan (1) FHx: colon cancer: Code(s): Z80.0 - Family history of malignant neoplasm of digestive organs Status: Acute Assessment and Plan: colonoscopy
[2024-11-21 10:02] VITALS: BP 80/33; PULSE 65; RESP 14; O2SAT 95
[2024-11-21 10:12] VITALS: BP 95/52; PULSE 65; RESP 21; O2SAT 97
[2024-11-21 10:22] VITALS: BP 113/51; PULSE 60; RESP 23; O2SAT 96
== END 2024-11-21 10:30 | disposition home or self-care (01) ==
PROVIDERS: PCP Nurse Practitioner Family; Referring Provider Nurse Practitioner Family; Visit Provider Internal Medicine Gastroenterology
PROC: 0DJD8ZZ Inspection of Lower Intestinal Tract, Via Natural or Artificial Opening Endoscopic (ICD-10-PCS; CPT 45378; principal; 2024-11-21 10:30)
DX: Z12.11 Encounter for screening for malignant neoplasm of colon (principal); K64.8 Other hemorrhoids; K57.30 Diverticulosis of large intestine without perforation or abscess without bleeding; I10 Essential (primary) hypertension; F32.A Depression, unspecified; G47.33 Obstructive sleep apnea (adult) (pediatric); E78.00 Pure hypercholesterolemia, unspecified; M19.90 Unspecified osteoarthritis, unspecified site; E66.9 Obesity, unspecified; Z68.31 Body mass index [BMI] 31.0-31.9, adult; Z79.82 Long term (current) use of aspirin; Z79.51 Long term (current) use of inhaled steroids; Z79.891 Long term (current) use of opiate analgesic; Z98.890 Other specified postprocedural states; Z98.51 Tubal ligation status; Z96.1 Presence of intraocular lens; Z80.3 Family history of malignant neoplasm of breast; Z80.0 Family history of malignant neoplasm of digestive organs
CPT/HCPCS: G0105; J2704; J7120